=== PATIENT | female | born 1985 | race Caucasian/White ===

== ENCOUNTER 2021-09-18 12:10 | Outpatient (CLI) | payer BC, SELFPAY ==
--- NOTE | 2021-09-18 12:15 | CRLHL7_ITS ---
For Patients: As a result of the Cures Act, medical imaging exams and procedure reports are released immediately into your electronic medical record. You may view this report before your referring provider. If you have questions, please contact your health care provider. INDICATION: Growth. TECHNIQUE: Ultrasound OB pelvis transabdominal. Real-time cifuentes-scale imaging of the fetus. COMPARISON: None available. FINDINGS: Sonographic imaging demonstrates a single living intrauterine gestation. Fetus demonstrates a regular cardiac rate of 123 beats per minute. Fetus has a breech orientation. Amniotic fluid volume appears normal. Single deepest pocket measures 5.7 cm. Placenta is posterior. The following biometric measurements were obtained: Biparietal diameter: 8.6 cm, 34 week 4 day, 84th percentile. Head circumference: 32 cm, 36 week 0 day, 84th percentile. Abdominal circumference: 29.4 cm, 33 week 2 day, 50th percentile. Femur length: 6.3 cm, 32 week 3 day, 21st percentile FL/AC ratio 21.3%. HC/AC ratio 1.09 The composite ultrasound gestational age is calculated at 34 week 1 day with an estimated sonographic due date of 10/29/2021. The weight is estimated at 2203 grams grams, the 51st percentile percentile. IMPRESSION.: Viable intrauterine . No abnormalities seen. Estimated 51st percentile based on weight. Dictated by Frank Leigh MD @ 09/18/2021 1:42:46 PM (Electronically Signed)
== END 2021-09-18 12:11 | disposition home or self-care (01) ==
LOC: US 12:10
PROVIDERS: PCP Family Medicine; Visit Provider Obstetrics & Gynecology
DX: O98.513 Other viral diseases complicating pregnancy, third trimester (principal); U07.1 COVID-19; Z3A.33 33 weeks gestation of pregnancy
CPT/HCPCS: 76816

== ENCOUNTER 2021-10-07 15:27 | Outpatient (CLI) | payer BC, SELFPAY ==
--- OUTSIDE RECORDS SUMMARY | 2021-10-07 15:38 | XMS_ITS | Encounter Summary ---
:1985 Author Organization [place] Address [address] [place] [address] Care Team Providers Name Role Phone Unavailable Primary Care Provider Unavailable Reason for Referral Diagnostic Imaging Ultrasound (Routine) - Pending Review Specialty Diagnoses / Procedures Referred By Contact Refer red To Contact Diagnoses Hx of delivery, currently , second trimester Terry Benítez MD Procedures MF US OB Complete 2/3 Tri Single [address] [place], [place] [address] Referral ID Status Reason Start Date Expiration Date Visits V isits Requested Authorized [id number] Pending 05/03/2021 05/03/2022 1 1 Review Reason for Visit Diagnostic Imaging Ultrasound (Routine) - Pending Review Specialty Diagnoses / Procedures Referred By Contact Refer red To Contact Diagnoses Hx of delivery, currently , second trimester Terry Benítez MD Procedures MF US OB Complete 2/3 Tri Single [address] [place], [place] [address] Referral ID Status Reason Start Date Expiration Date Visits V isits Requested Authorized [id number] Pending 05/03/2021 05/03/2022 1 1 Review Encounter Details Date Type Department Care Team Description 05/24/2021 Hospital Encounter [facility] Santiago Benítez MD [address] [place] [address] Hx of Maternal Melba Bell, DO [address] [place] [address] delivery, currently [facility] , se cond Harris trimester [address] [place] [address] Social History Tobacco Use Types Packs/Day Years Used Date Never Assessed Sex Assigned at Date Recorded Not on file COVID-19 Exposure Response Date Recorded In the last month, have you been in contact with No / Unsure 05/24/2021 7:59 AM CDT someone who was confirmed or suspected to have Coronavirus / COVID-19? documented as of this encounter Medications at Time of Discharge Medication Sig Dispensed Refills Start Date End Date aspirin (ASA) 81 MG Take 81 mg by mouth 0 chewable tablet daily MV-Min-Fe Take 1 tablet by 0 10/22/2019 Fum-FA-DHA ( 1 PO) mouth daily documented as of this encounter Plan of Treatment Not on filedocumented as of this encounter Procedures Procedure Name Priority Date/Time Associated Diagnosis Comme nts [facility] US OB COMPLETE Routine 05/24/2021 9:07 AM Hx of Re sults for this 2/3 TRI SINGLE CDT delivery, currently proced ure are in , second the results trimester section. documented in this encounter Results [facility] US OB Complete 2/3 Tri Single (05/24/2021 9:07 AM CDT) Anatomical Region Laterality Modality Ultrasound Specimen (Source) Anatomical Collection Method Collection Time Re ceived Time Location / / Volume Laterality 05/24/2021 8:04 AM CDT Impressions 05/24/2021 5:29 PM CDT IMPRESSION 1) Intrauterine at 16 3/7 week s gestational age. 2) None of the anomalies commonly detect ed by ultrasound were evident in the early anatomic survey described above. The nasal bone measures <5%ile. No other markers for aneuploidy were noted. 3) Growth parameters and estimated weight were consistent with an appropriate for gestation age pattern of growth. 4) The amniotic fluid volume appeared no rmal. 5) The transvaginal cervical length is r eassuring. Narrative 05/24/2021 5:29 PM CDT / Trim Pat. Name: ILIANA RAMIREZ Study Date: 8:04am Pat. NO: [id number] Referring ??MD: PRINCE SALAZAR Site: [facility] Urgent Care Technician: Fernando Matthews RDMS : 1985 Age: 36 INDICATION Survey METHOD Transabdominal and transvaginal ultrasou nd approaches were used. (Transvaginal ultrasound examination was required to adequately complete the exam.). View: Sufficient Burnett . Number of fetuses: 1 DATING ? Date ?Details ?Gest. age ?ZAHIRA LMP ?01/29/2021 ? 16 w + 3 d ? 11/05/2021 Prior assessment ? 2/ 03/2021 ?GA: 7 w + 4 d ? 15 w + 6 d ? 11/09/2021 U/S ? 05/24/2021 ?based upon AC, BPD, Femur, HC ? 16 w + 2 d ? 11/06/2021 Assigned dating ?Dating performed on 05/24/2021, based on the LMP ?16 w + 3 d ? 11/05/2021 GENERAL EVALUATION Cardiac activity present. FHR 142 bpm. movements visualized. Presentation cephalic. Placenta Posterior, No Previa, > 2 cm fr om internal os. Umbilical cord 3 vessel cord. Amniotic fluid Amount of AF: normal. MVP 3.9 cm. BIOMETRY Main Biometry: BPD ?33.8 ?mm ? 16w 3d ?Hadlock OFD ?45.4 ?mm ? 15w 6d ?Nicolaides HC ?126.1 ?mm ?16w 3d ?Hadlock Cerebellum tr ?15.7 ? mm ?15w 5d ?Nicolaides AC ?104.9 ?mm ?16w 3d ?51% ?Hadlock Femur ?19.3 ? mm ?15w 5d ?Hadlock Humerus ?19.4 ?mm ? 15w 5d ?Brooke Weight Calculation: EFW ? 146 ? g ? 24% ?Hadlock EFW (lb,oz) ? 0 lb 5 ?oz EFW by ?Hadlock ([id number]) Head / Face / Neck Biometry: Sand Analyst ? 5.4 ? mm CM ?2.9 ? mm Nasal bone ? 3.6 ? mm Nuchal fold ? 3.1 ? mm ANATOMY Face ? Nose: Hypoplastic nasal bone The following structures appear normal: Head / Neck ? Cranium. Head size. Head shape. Lateral ventricles. Choroid plexus. Midline falx. Cavum septi pellucidi. Cerebellum. Cisterna magna. ? Parenchyma. Thalami. Vermis. ? Neck. Nuchal fold. Face ? Lips. Profile. Maxilla. Mandible. Lens. Heart / Thorax ?4-chamber view. RVOT view. LVOT view. Situs. Aortic arch view. Bicaval view. Ductal arch view. Superior vena cava. Inferior vena cava. 3-vessel ? view. 3-tqkcnd-frarnlo view. Cardiac position. Cardiac size. Cardiac rhythm. ? Right lung. Left lung. Diaphragm. Abdomen ? Abdominal wall. Cord insertion. Stomach. Kidneys. Bladder. Liver. Bowel. Genitals. Spine ?Cervical spine. Thoracic spine. Lumbar spine. Sacral spine. Extremities / Skeleton ?Rig ht arm. Right hand. Left arm. Left hand. Right leg. Right foot. Left leg. Left foot. MATERNAL STRUCTURES Cervix ?Visualized ? Appearance: normal ? Approach - Transvaginal: Cervical length 32.2 mm ? Approach - Transabdominal: Cervical length (2) 51.3 mm ? Transvaginal measurement limited by lower uterine segment contraction. Right Ovary ?Visualized Left Ovary ?Visualized CONSULTATION Type: MFM CONSULTATION Dear Dr. Salazar, Thank you for your request for a Materna l Medicine consultation on Ms. Iliana Ramirez regarding her history of a prior PTD. Iliana is a 36 y/o @ 16 04/29 wee ks by LMP c/w early US here to discuss her prior PTB. She is feeling well and has no complaints today. She had Covid (mild) in Feb, 2021. s/p fully vaccinated. 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 Kimber ined placenta, requiring manual extraction, no hemorrhage History of Spontaneous (PT B) Today we discussed the incidence and epi demiology of (PTB). There are multiple etiologies of spontaneous PTB, including but not limited to infection, bleeding, uterine distension, cervical i nsufficiency and stress. However, most spontaneous deliveries occur in patients with no risk factors. A history of prior delivery is a significant risk factor fo r recurrence in a subsequent . Recurrent delivery has been linked to maternal ethnicity, genitourinary infection, and especially gestational age at the first delivery: the earlier the delivery, the greater the likelihood of recurrence. We discussed that recurrent can happen at the same gestational age as a prior p reterm but that it cannot be predicted and it could recur at an earlier gestational age. We also discussed the concept of cervical insufficiency which is another cause of and is classically described as painless cervical dilation. Most women with cervical insufficiency which is either undiagnosed or those undergoing e xpectant management will eventually develop symptoms, which may be pressure, back pain, cramping, leakage of fluid, vaginal bleeding and ultimately contractions. Mi d-trimester cervical dilation increases the risk of intra-amniotic infection which can then cause contractions and labor. We discussed the increased morb idity and mortality with prematurity which is the rationale for trying to prevent recurrent . We follow cervical lengths every two from 16 to 23 weeks in women w ith a history of PTB; an ultrasound indicated cerclage may be considered if shortening is detected prior to 23-24 weeks, given that all cases of cervical insufficiency may not fit into the classic patterns by history. We discussed the data regarding the use of weekly intramuscular injections of 17 hydroxyprogesterone caproate (17-OHP) supplementation as a means to modify the risk of recurrent . A multicente r, double-blind randomized controlled trial found a 34% reduction in recurrent <37 weeks (Phillip et al, 2003) with the use of 17-OHP . This trial also found a sign ificant reduction in recurrent <35 and <32 weeks. A more recent international, double-blind randomized controlled trial (PROLONG) found no reduction in the rate of recurrent <35 weeks (Lela et al, 2019), calling into question the established use of 17-OHP. Importantly, both studies indicate that 17-OHP is saf e, at least in the short term. The Society for Maternal Medicine interprets these disparate results as possibly partially related to the different populations in the two studies (59% black in [place] versus 90% white in [place]; 50% marri ed in [place] versus 90% in [place]; 20% tobacco use in [place] versus 8% in [place]; 32% had more than one prior PTB in [place] versus 12% in [place]; 91% with at andres st on additional risk factor for PTB in [place] versus 48% in [place]). The current conclusion of [facility] is that it is reasonable to offer 17-OHP to women with a profile mor e life assurance representative of the very high risk patient, but that all women at risk of recurrent should have a discussion of the risks/benefits and undergo a shared deci alex-making process. After the publication of the Lela ( PROLONG) study an FDA Advisory Committee recommended withdrawing [place] (17 - OHP) off the market. The FDA decision is still pending. [facility] did not change their position. ACOG supports the use of vaginal progesterone as well for the indication of a primary PTB. After a discussion of the above, Ms. Berenice hooks has decided not to pursue progesterone supplementation which is reasonable. Hypoplastic Nasal Bone (not seen initial ly, discussed with the patient after her visit). - We reviewed the findings of a hypoplas tic NB. Discussed her baseline risk for DS based on her age is 1 in 342. An isolated short nasal bone carries a likelihood ratio of 6 and increases her risk to 1 in 57 (or 1. 7%). We also discussed that this can be a normal variant, no other markers were noted. We reviewed the option for cell free DNA screening versus amniocentesis. The mar ent prefers a non invasive route and will likely go to [place] on Thursday to have cell free DNA drawn. She can contact our office early next week if Dr. Salazar' office ca nnot get her in for it. We discussed what the results might mean if low risk/high risk, but can provide further information if needed. Recommendations: - Cell free DNA screening to be performe d through [place]. - Baseline transvaginal cervical length at 16 weeks' gestation with measurements every 2 weeks through 23 weeks. - [place] to perform the TVUS for CL at 18 and 22 weeks. - [facility] will perform a comprehensive US at 20 weeks + the TVUS. - We reviewed the option of 17 OHP/vagin al progesterone. Patient will forgo those options. - Ultrasound-indicated cerclage should b e considered if shortening <25 mm is diagnosed <24 weeks. - Administration of corticoste roids if the patient is deemed to be at increased risk of imminent delivery. - Urine culture every trimester with agg ressive treatment of bacteriuria. - Clinical evaluation of labor s ymptoms. I spent a total of 42 minutes with patie nt - 30 min counseling - 6 min chart review - 6 min documentation Melba Bell DO Maternal Medicine RECOMMENDATION We discussed the findings on today's ul rasound with the patient. See consultation above for details. A repeat ultrasound has been scheduled [facility] in 4 weeks for a comprehensive US. Return to primary provider for continued care. Thank you for the opportunity to partici dio in the care of this patient. If you have questions regarding today's evaluation or if we can be of further service, please contact the [facility]. anomalies may be present but not detected Procedure Note Melba Bell DO - 05/24/2021 2nd / 3rd Trim Pat. Name:Ling RAMIREZ Date:05/24 8:04am Pat. NO: [id number] MD:JUSTIN SALAZAR [facility]Fernando Matthews RDMS :1985Age:36 INDICATION Survey METHOD Transabdominal and transvaginal ultrasou nd approaches were used. (Transvaginal ultrasound examination was required to adequately complete the exam.). View: Sufficient Burnett . Number of fetuses: 1 DATING Date Details Gest. age ZAHIRA LMP 01/29/2021 16 w + 3 d 11/05/2021 Prior assessment 03/27/2021 GA: 7 w + 4 d 15 w + 6 d 11/09/2021 U/S 05/24/2021 based upon AC, BPD, Femur, HC 16 w + 2 d 11/06/2021 Assigned dating Dating performed on 05/24, based on the LMP 16 w + 3 d 11/05/2021 GENERAL EVALUATION Cardiac activity present. FHR 142 bpm. movements visualized. Presentation cephalic. Placenta Posterior, No Previa, > 2 cm fr om internal os. Umbilical cord 3 vessel cord. Amniotic fluid Amount of AF: normal. MVP 3.9 cm. BIOMETRY Main Biometry: BPD 33.8 mm 16w 3d Hadlock OFD 45.4 mm 15w 6d Nicolaides HC 126.1 mm 16w 3d Hadlock Cerebellum tr 15.7 mm 15w 5d Nicolaides AC 104.9 mm 16w 3d 51% Hadlock Femur 19.3 mm 15w 5d Hadlock Humerus 19.4 mm 15w 5d Brooke Weight Calculation: EFW 146 g 24% Hadlock EFW (lb,oz) 0 lb 5 oz EFW by Hadlock ([id number]) Head / Face / Neck Biometry: Sand Analyst 5.4 mm CM 2.9 mm Nasal bone 3.6 mm Nuchal fold 3.1 mm ANATOMY Face Nose: Hypoplastic nasal bone The following structures appear normal: Head / Neck Cranium. Head size. Head sha pe. Lateral ventricles. Choroid plexus. Midline falx. Cavum septi pellucidi. Cerebellum. Cisterna magna. Parenchyma. Thalami. Vermis. Neck. Nuchal fold. Face Lips. Profile. Maxilla. Mandible. L ens. Heart / Thorax 4-chamber view. RVOT view . LVOT view. Situs. Aortic arch view. Bicaval view. Ductal arch view. Superior vena cava. Inferior vena cava. 3-vessel view. 8-ugghac-ljnocew view. Cardiac po sition. Cardiac size. Cardiac rhythm. Right lung. Left lung. Diaphragm. Abdomen Abdominal wall. Cord insertion. Stomach. Kidneys. Bladder. Liver. Bowel. Genitals. Spine Cervical spine. Thoracic spine. Bri mbar spine. Sacral spine. Extremities / Skeleton Right arm. Right hand. Left arm. Left hand. Right leg. Right foot. Left leg. Left foot. MATERNAL STRUCTURES Cervix Visualized Appearance: normal Approach - Transvaginal: Cervical lengt h 32.2 mm Approach - Transabdominal: Cervical jania gth (2) 51.3 mm Transvaginal measurement limited by low er uterine segment contraction. Right Ovary Visualized Left Ovary Visualized CONSULTATION Type: MFM CONSULTATION Dear Dr. Salazar, Thank you for your request for a Materna l Medicine consultation on Ms. Iliana Ramirez regarding her history of a prior PTD. Iliana is a 36 y/o @ 16 04/29 wee ks by LMP c/w early US here to discuss her prior PTB. She is feeling well and has no complaints today. She had Covid (mild) in Feb, 2021. s/p fully vaccinated. 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 Kimber ined placenta, requiring manual extraction, no hemorrhage History of Spontaneous (PT B) Today we discussed the incidence and epi demiology of (PTB). There are multiple etiologies of spontaneous PTB, including but not limited to infection, bleeding, uterine distension, cervical i nsufficiency and stress. However, most spontaneous deliveries occur in patients with no risk factors. A history of prior delivery is a significant risk factor fo r recurrence in a subsequent . Recurrent delivery has been linked to maternal ethnicity, genitourinary infection, and especially gestational age at the first delivery: the earlier the delivery, the greater the likelihood of recurrence. We discussed that recurrent can happen at the same gestational age as a prior p reterm but that it cannot be predicted and it could recur at an earlier gestational age. We also discussed the concept of cervical insufficiency which is another cause of and is classically described as painless cervical dilation. Most women with cervical insufficiency which is either undiagnosed or those undergoing e xpectant management will eventually develop symptoms, which may be pressure, back pain, cramping, leakage of fluid, vaginal bleeding and ultimately contractions. Mi d-trimester cervical dilation increases the risk of intra-amniotic infection which can then cause contractions and labor. We discussed the increased morb idity and mortality with prematurity which is the rationale for trying to prevent recurrent . We follow cervical lengths every two from 16 to 23 weeks in women w ith a history of PTB; an ultrasound indicated cerclage may be considered if shortening is detected prior to 23-24 weeks, given that all cases of cervical insufficiency may not fit into the classic patterns by history. We discussed the data regarding the use of weekly intramuscular injections of 17 hydroxyprogesterone caproate (17-OHP) supplementation as a means to modify the risk of recurrent . A multicente r, double-blind randomized controlled trial found a 34% reduction in recurrent <37 weeks (Phillip et al, 2003) with the use of 17-OHP . This trial also found a sign ificant reduction in recurrent <35 and <32 weeks. A more recent international, double-blind randomized controlled trial (PROLONG) found no reduction in the rate of recurrent <35 weeks (Lela et al, 2019), calling into question the established use of 17-OHP. Importantly, both studies indicate that 17-OHP is saf e, at least in the short term. The Society for Maternal Medicine interprets these disparate results as possibly partially related to the different populations in the two studies (59% black in [place] versus 90% white in [place]; 50% marri ed in [place] versus 90% in [place]; 20% tobacco use in [place] versus 8% in [place]; 32% had more than one prior PTB in [place] versus 12% in [place]; 91% with at andres st on additional risk factor for PTB in [place] versus 48% in [place]). The current conclusion of [facility] is that it is reasonable to offer 17-OHP to women with a profile mor e life assurance representative of the very high risk patient, but that all women at risk of recurrent should have a discussion of the risks/benefits and undergo a shared deci alex-making process. After the publication of the [place] ( PROLONG) study an FDA Advisory Committee recommended withdrawing [place] (17 - OHP) off the market. The FDA decision is still pending. [facility] did not change their position. ACOG supports the use of vaginal progesterone as well for the indication of a primary PTB. After a discussion of the above, Ms. Berenice hooks has decided not to pursue progesterone supplementation which is reasonable. Hypoplastic Nasal Bone (not seen initial ly, discussed with the patient after her visit). - We reviewed the findings of a hypoplas tic NB. Discussed her baseline risk for DS based on her age is 1 in 342. An isolated short nasal bone carries a likelihood ratio of 6 and increases her risk to 1 in 57 (or 1. 7%). We also discussed that this can be a normal variant, no other markers were noted. We reviewed the option for cell free DNA screening versus amniocentesis. The mar ent prefers a non invasive route and will likely go to [place] on Thursday to have cell free DNA drawn. She can contact our office early next week if Dr. Salazar' office ca nnot get her in for it. We discussed what the results might mean if low risk/high risk, but can provide further information if needed. Recommendations: - Cell free DNA screening to be performe d through [facility]. - Baseline transvaginal cervical length at 16 weeks' gestation with measurements every 2 weeks through 23 weeks. - [facility] to perform the TVUS for CL at 18 and 22 weeks. - [facility] will perform a comprehensive US at 20 weeks + the TVUS. - We reviewed the option of 17 OHP/vagin al progesterone. Patient will forgo those options. - Ultrasound-indicated cerclage should b e considered if shortening <25 mm is diagnosed <24 weeks. - Administration of corticoste roids if the patient is deemed to be at increased risk of imminent delivery. - Urine culture every trimester with agg ressive treatment of bacteriuria. - Clinical evaluation of labor s ymptoms. I spent a total of 42 minutes with kelly nt - 30 min counseling - 6 min chart review - 6 min documentation Melba Bell DO Maternal Medicine RECOMMENDATION We discussed the findings on today's ult rasound with the patient. See consultation above for details. A repeat ultrasound has been scheduled h ere in 4 weeks for a comprehensive US. Return to primary provider for continued care. Thank you for the opportunity to partici dio in the care of this patient. If you have questions regarding today's evaluation or if we can be of further service, please contact the [facility]. anomalies may be present but not detected IMPRESSION 1) Intrauterine at 16 3/7 week s gestational age. 2) None of the anomalies commonly detect ed by ultrasound were evident in the early anatomic survey described above. The nasal bone measures <5%ile. No other markers for aneuploidy were noted. 3) Growth parameters and estimated weight were consistent with an appropriate for gestation age pattern of growth. 4) The amniotic fluid volume appeared no rmal. 5) The transvaginal cervical length is r eassuring. Terry Benítez MD [facility] documented in this encounter Visit Diagnoses Diagnosis Hx of delivery, currently pregna nt, second trimester documented in this encounter
--- OUTSIDE RECORDS SUMMARY | 2021-10-07 15:38 | XMS_ITS | Encounter Summary ---
:1985 Author Organization [place] Address [address] [facility] [place] [address] Care Team Providers Name Role Phone Unavailable Primary Care Provider Unavailable Reason for Visit Reason Comments Ultrasound 2/3+TV- hx PTL/PTD, 1st tri Covid Consult MFM- hx PTL/PTD, 1st tri Cov id Encounter Details Date Type Department Care Team Description 05/17/2021 PRE VISIT [facility] Maricruz Andrade nd (2/3+TV- hx Maternal Jonelle Raz RN PTL/PTD, 1st [facility] Covid); Cons ult ([facility] hx PTL/PTD, 1st tri [address] Covid) [place], [place] [address] Social History Tobacco Use Types Packs/Day Years Used Date Never Assessed Sex Assigned at Date Recorded Not on file documented as of this encounter Plan of Treatment Not on filedocumented as of this encounter Visit Diagnoses Not on filedocumented in this encounter
--- OUTSIDE RECORDS SUMMARY | 2021-10-07 15:38 | XMS_ITS | Encounter Summary ---
:1985 Author Organization [place] Address [address] [place] [address] Care Team Providers Name Role Phone Unavailable Primary Care Provider Unavailable Reason for Referral Consultation (Routine) - Pending Review Specialty Diagnoses / Procedures Referred By Contact Refer red To Contact Diagnoses related condition, antepartum Jacqueline Salazar MD [facility] MEDICAL [address] [place] [address] Referral ID Status Reason Start Date Expiration Date Visits V isits Requested Authorized [id number] Pending 05/03/2021 05/03/2022 1 1 Review [employer]PER[employer] Encounter Details Date Type Department Care Team Description 05/03/2021 Transcribe Orders [facility] Jacqueline Salazar Pr egnancy related Maternal MD Jude condition, Medicine Center [facility] antepartum ( Primary [place] MEDICAL Dx) [address] [facility] [address] [place] [id number] Social History Tobacco Use Types Packs/Day Years Used Date Never Assessed Sex Assigned at Date Recorded Not on file documented as of this encounter Plan of Treatment Scheduled Referrals Name Type Priority Associated Diagnoses Order S chedule Mat Med Ctr Referral Routine related Expec desean: 05/03/2021 Referral - condition, antepartu m (Approximate), Expires: 2021 documented as of this encounter Visit Diagnoses Diagnosis related condition, antepartum - Primary documented in this encounter
--- OUTSIDE RECORDS SUMMARY | 2021-10-07 15:38 | XMS_ITS | Encounter Summary ---
:1985 Author Organization [place] Address [address] [place] [address] Care Team Providers Name Role Phone Unavailable Primary Care Provider Unavailable Reason for Visit [facility] (Routine) - Closed Specialty Diagnoses / Procedures Referred By Contact Refer red To Contact Ziggy Brown FOR ATHLETIC ORTHOPAEDIC FRACTURE [facility] MED [address] [place] [address] Fax: Referral ID Status Reason Start Date Expiration Date Visits V isits Requested Authorized HPCIGNA - KNEE Closed 07/08/2007 02/23/2008 90 88 Encounter Details Date Type Department Care Team Description 08/11/2007 [facility] Mckeon ACL (Anterior Cruciate Ligament) Tear; [facility] Other Postp rocedural Status [facility] [address] [facility] [facility] [place], [place] [address] Social History Tobacco Use Types Packs/Day Years Used Date Never Assessed Sex Assigned at Date Recorded Not on file documented as of this encounter Progress Notes Patricia Mckeon - 08/11/2007 1:02 PM CDT Please refer to the daily flowsheet for treatment today and total treatment time. Does this patient have Medicare or Medicaid as primary or secondary insurance? NO documented in this encounter Plan of Treatment Not on filedocumented as of this encounter Procedures Procedure Name Priority Date/Time Associated Diagnosis Comme nts [facility] THERAPEUTIC Routine 08/11/2007 1:02 PM ACL (Anterior Cruci ate ACTIVITIES CDT Ligament) Tear Other Postprocedural Status [facility] NEUROMUSCULAR Routine 08/11/2007 1:02 PM ACL (Anterior Cru ciate RE-EDUCATION CDT Ligament) Tear Other Postprocedural Status [facility] THERAPEUTIC Routine 08/11/2007 1:02 PM ACL (Anterior Cruci ate EXERCISES CDT Ligament) Tear Other Postprocedural Status documented in this encounter Visit Diagnoses Diagnosis ACL (anterior cruciate ligament) tear Sprain of cruciate ligament of knee Other postprocedural status(V45.89) Other postprocedural status documented in this encounter
--- OUTSIDE RECORDS SUMMARY | 2021-10-07 15:38 | XMS_ITS | Encounter Summary ---
:1985 Author Organization [place] Address [address] [facility] [address] Care Team Providers Name Role Phone Melba Bell DO Unavailable [phone] Reason for Referral Diagnostic Imaging Ultrasound (Routine) - Pending Review Specialty Diagnoses / Procedures Referred By Contact Refer red To Contact Diagnoses Hx of delivery, currently , second trimester Melba Bell, Procedures [facility] Comprehensive Single DO [address] [place], [place] [address] Referral ID Status Reason Start Date Expiration Date Visits V isits Requested Authorized [id number] Pending 05/24/2021 05/24/2022 1 1 Review Reason for Visit Diagnostic Imaging Ultrasound (Routine) - Pending Review Specialty Diagnoses / Procedures Referred By Contact Refer red To Contact Diagnoses Hx of delivery, currently , second trimester Melba Bell, Procedures [facility] Comprehensive Single DO [address] [place], [place] [address] Referral ID Status Reason Start Date Expiration Date Visits V isits Requested Authorized [id number] Pending 05/24/2021 05/24/2022 1 1 Review Encounter Details Date Type Department Care Team Description 06/21/2021 [facility]x of Maternal DO Alla delivery, [facility], [place], [facility] [address] pregna nt, [facility] 400 trimester [address] [place], [place] [address] [address] [place], [place] [phone] (Work) [phone] Social History Tobacco Use Types Packs/Day Years Used Date Never Assessed Sex Assigned at Date Recorded Not on file COVID-19 Exposure Response Date Recorded In the last 10 days, have you been in contact with No / Unsu re 06/21/2021 8:48 AM CDT someone who was confirmed or suspected to have Coronavirus/COVID-19? documented as of this encounter Medications at [...] encounter Procedures Procedure Name Priority Date/Time Associated Comments Diagnosis [facility] US COMPREHENSIVE Routine 06/21/2021 11:04 Hx of Re sults for this SINGLE AM CDT delivery, currently procedur e are in , second the results trimester section. documented in this encounter Results [facility] US Comprehensive Single (06/21/2021 11:04 AM CDT) Anatomical Region Laterality Modality Ultrasound Specimen (Source) Anatomical Collection Method Collection Time Re ceived Time Location / / Volume Laterality 06/21/2021 8:50 AM CDT Impressions 06/21/2021 10:24 AM CDT IMPRESSION 1) Intrauterine at 20 3/7 week s gestational age. 2) None of the anomalies commonly detect ed by ultrasound were evident in the detailed anatomic survey described above. No markers for aneuploidy are noted (the nasal bone is no longer hypoplastic). 3) Growth parameters and estimated weight were consistent with an appropriate for gestation age pattern of growth. 4) The amniotic fluid volume appeared no rmal. 5) The transvaginal cervical length is r eassuring. Narrative 06/21/2021 10:24 AM CDT Comprehensive Pat. Name: ILIANA RAMIREZ Study Date: 8:50am Pat. NO: [id number] Referring ??MD: PRINCE SHERIFF Site: [facility] Inside Sales: Marjan Lane RD MS : 1985 Age: 36 INDICATION History of delivery. NIPT negati ve METHOD Transabdominal and transvaginal ultrasou nd approaches were used. (Transvaginal ultrasound examination was required to adequately complete the exam.). View: Sufficient Burnett . Number of fetuses: 1 DATING ? Date ?Details ?Gest. age ?ZAHIRA LMP ?01/29/2021 ? 20 w + 3 d ? 11/05/2021 Prior assessment ? 2/ 03/2021 ?GA: 7 w + 4 d ? 19 w + 6 d ? 11/09/2021 U/S ? 06/21/2021 ? based upon AC, BPD, Femur, HC ? 20 w + 3 d ? 11/05/2021 Assigned dating ?Dating performed on 05/24/2021, based on the LMP ?20 w + 3 d ? 11/05/2021 GENERAL EVALUATION Cardiac activity present. FHR 136 bpm. movements present. Presentation cephalic. Placenta Posterior, No Previa, > 2 cm fr om internal os. Umbilical cord 3 vessel cord. Amniotic fluid Amount of AF: normal. MVP 5.2 cm. BIOMETRY Main Biometry: BPD ?48.1 ?mm ? 20w 4d ?Hadlock OFD ?64.0 ?mm ? 20w 3d ?Nicolaides HC ?180.6 ?mm ?20w 3d ?Hadlock Cerebellum tr ?21.0 ? mm ?20w 0d ?Nicolaides AC ?152.0 ?mm ?20w 3d ?43% ?Hadlock Femur ?32.0 ? mm ?20w 0d ?Hadlock Humerus ?31.0 ?mm ? 20w 2d ?Brooke Weight Calculation: EFW ? 341 ? g ? 35% ?Hadlock EFW (lb,oz) ? 0 lb 12 ? oz EFW by ?Hadlock ([id number]) Head / Face / Neck Biometry: Motor Rebuilder ? 5.9 ? mm CM ?6.1 ? mm Nasal bone ? 5.9 ? mm Nuchal fold ? 3.4 ? mm ANATOMY The following structures appear normal: Head / Neck ? Cranium. Head size. Head shape. Lateral ventricles. Choroid plexus. Midline falx. Cavum septi pellucidi. Cerebellum. Cisterna magna. ? Parenchyma. Thalami. Vermis. ? Neck. Nuchal fold. Face ? Lips. Profile. Nose. Maxilla. Mandible. Orbits. Lens. Heart / Thorax ?4-chamber view. RVOT view. LVOT view. Situs. Aortic arch view. Bicaval view. Ductal arch view. Superior vena cava. Inferior vena cava. 3-vessel ? view. 9-zpwkex-uodhexk view. Cardiac position. Cardiac size. Cardiac rhythm. ? Right lung. Left lung. Diaphragm. Abdomen ? Abdominal wall. Cord insertion. Stomach. Kidneys. Bladder. Liver. Bowel. Genitals. Spine ?Cervical spine. Thoracic spine. Lumbar spine. Sacral spine. Extremities / Skeleton ?Rig ht arm. Right hand. Left arm. Left hand. Right leg. Right foot. Left leg. Left foot. Gender: male. MATERNAL STRUCTURES Cervix ?Visualized ? Appearance: Appears Closed ? Approach - Transvaginal: Cervical length 40.0 mm Right Ovary ?Visualized Left Ovary ?Visualized RECOMMENDATION We discussed the findings on today's ult rasound with the patient. Patient opted to do cell free DNA screen ing after her last US and it returned low risk. Having a repeat TVUS for CL with primary ob in 2 weeks. Return to primary provider for continued care. Thank you for the opportunity to partici dio in the care of this patient. If you have questions regarding today's evaluation or if we can be of further service, please contact the [facility]. anomalies may be present but not detected Procedure Note Melab Bell, DO - 06/21/2021 Comprehensive Pat. Name:MARK RAMIREZILStsebastián Date:06/21 8:50am Pat. NO: [id number] MD:JUSTIN SHERIFF Site:[facility]gesSonographer:Marjan Lane RDMS :1985Age:36 INDICATION History of delivery. NIPT negati ve METHOD Transabdominal and transvaginal ultrasou nd approaches were used. (Transvaginal ultrasound examination was required to adequately complete the exam.). View: Sufficient Burnett . Number of fetuses: 1 DATING Date Details Gest. age ZAHIRA LMP 01/29/2021 20 w + 3 d 11/05/2021 Prior assessment 03/27/2021 GA: 7 w + 4 d 19 w + 6 d 11/09/2021 U/S 06/21/2021 based upon AC, BPD, Femur, HC 20 w + 3 d 11/05/2021 Assigned dating Dating performed on 05/24, based on the LMP 20 w + 3 d 11/05/2021 GENERAL EVALUATION Cardiac activity present. FHR 136 bpm. movements present. Presentation cephalic. Placenta Posterior, No Previa, > 2 cm fr om internal os. Umbilical cord 3 vessel cord. Amniotic fluid Amount of AF: normal. MVP 5.2 cm. BIOMETRY Main Biometry: BPD 48.1 mm 20w 4d Hadlock OFD 64.0 mm 20w 3d Nicolaides HC 180.6 mm 20w 3d Hadlock Cerebellum tr 21.0 mm 20w 0d Nicolaides AC 152.0 mm 20w 3d 43% Hadlock Femur 32.0 mm 20w 0d Hadlock Humerus 31.0 mm 20w 2d Brooke Weight Calculation: EFW 341 g 35% Hadlock EFW (lb,oz) 0 lb 12 oz EFW by Hadlock ([id number]) Head / Face / Neck Biometry: Motor Rebuilder 5.9 mm CM 6.1 mm Nasal bone 5.9 mm Nuchal fold 3.4 mm ANATOMY The following structures appear normal: Head / Neck Cranium. Head size. Head sha pe. Lateral ventricles. Choroid plexus. Midline falx. Cavum septi pellucidi. Cerebellum. Cisterna magna. Parenchyma. Thalami. Vermis. Neck. Nuchal fold. Face Lips. Profile. Nose. Maxilla. Mirian ble. Orbits. Lens. Heart / Thorax 4-chamber view. RVOT view . LVOT view. Situs. Aortic arch view. Bicaval view. Ductal arch view. Superior vena cava. Inferior vena cava. 3-vessel view. 9-nmskix-lgehmue view. Cardiac po sition. Cardiac size. Cardiac rhythm. Right lung. Left lung. Diaphragm. Abdomen Abdominal wall. Cord insertion. Stomach. Kidneys. Bladder. Liver. Bowel. Genitals. Spine Cervical spine. Thoracic spine. Bri mbar spine. Sacral spine. Extremities / Skeleton Right arm. Right hand. Left arm. Left hand. Right leg. Right foot. Left leg. Left foot. Gender: male. MATERNAL STRUCTURES Cervix Visualized Appearance: Appears Closed Approach - Transvaginal: Cervical lengt h 40.0 mm Right Ovary Visualized Left Ovary Visualized RECOMMENDATION We discussed the findings on today's ult rasound with the patient. Patient opted to do cell free DNA screen ing after her last US and it returned low risk. Having a repeat TVUS for CL with primary ob in 2 weeks. Return to primary provider for continued care. Thank you for the opportunity to partici dio in the care of this patient. If you have questions regarding today's evaluation or if we can be of further service, please contact the [facility]. anomalies may be present but not detected IMPRESSION 1) Intrauterine at 20 3/7 week s gestational age. 2) None of the anomalies commonly detect ed by ultrasound were evident in the detailed anatomic survey described above. No markers for aneuploidy are noted (the nasal bone is no longer hypoplastic). 3) Growth parameters and estimated weight were consistent with an appropriate for gestation age pattern of growth. 4) The amniotic fluid volume appeared no rmal. 5) The transvaginal cervical length is r eassuring. Melba Bell DO IMG M US ORDERABLES documented in this encounter Visit Diagnoses Diagnosis Hx of delivery, currently pregna nt, second trimester documented in this encounter Care Teams [employer] Software Developer Relationship Specialty Start Date End Date Melba Bell DO Assigned OBGYN Provider 06/02/21 09/20/[address] [facility] [address] [place] [address] documented as of this encounter
--- OUTSIDE RECORDS SUMMARY | 2021-10-07 15:38 | XMS_ITS | Encounter Summary ---
:1985 Author Organization [place] Address [address] [place] [address] Care Team Providers Name Role Phone Unavailable Primary Care Provider Unavailable Reason for Visit [facility] (Routine) - Closed Specialty Diagnoses / Procedures Referred By Contact Refer red To Contact Ziggy Brown FOR ATHLETIC ORTHOPAEDIC FRACTURE [facility] MED [address] [place] [phone] Fax: Referral ID Status Reason Start Date Expiration Date Visits V isits Requested Authorized HPCIGNA - KNEE Closed 07/08/2007 02/23/2008 90 88 Encounter Details Date Type Department Care Team Description 07/28/2007 [facility] Mckeon ACL (Anterior Cruciate Ligament) Tear; [facility] Other Postp rocedural Status [facility] [address] [facility] [place], [place] [address] Social History Tobacco Use Types Packs/Day Years Used Date Never Assessed Sex Assigned at Date Recorded Not on file documented as of this encounter Progress Notes Patricia Mckeon - 07/28/2007 5:36 PM CDT Please refer to the daily flowsheet for treatment today and total treatment time. Does this patient have Medicare or Medicaid as primary or secondary insurance? NO documented in this encounter Plan of Treatment Not on filedocumented as of this encounter Procedures Procedure Name Priority Date/Time Associated Diagnosis Comme nts Z THERAPEUTIC Routine 07/28/2007 5:37 PM ACL (Anterior Cruci ate ACTIVITIES CDT Ligament) Tear Other Postprocedural Status [facility] THERAPEUTIC Routine 07/28/2007 5:37 PM ACL (Anterior Cruci ate EXERCISES CDT Ligament) Tear Other Postprocedural Status documented in this encounter Visit Diagnoses Diagnosis ACL (anterior cruciate ligament) tear Sprain of cruciate ligament of knee Other postprocedural status(V45.89) Other postprocedural status documented in this encounter
--- OUTSIDE RECORDS SUMMARY | 2021-10-07 15:38 | XMS_ITS | Encounter Summary ---
:1985 Author Organization [place] Address [address] [place] [address] Care Team Providers Name Role Phone Unavailable Primary Care Provider Unavailable Encounter Details Date Type Department Care Team Description 05/24/2021 Travel Social History Tobacco Use Types Packs/Day Years Used Date Never Assessed Sex Assigned at Date Recorded Not on file COVID-19 Exposure Response Date Recorded In the last month, have you been in contact with No / Unsure 05/24/2021 7:59 AM CDT someone who was confirmed or suspected to have Coronavirus / COVID-19? documented as of this encounter Plan of Treatment Not on filedocumented as of this encounter Visit Diagnoses Not on filedocumented in this encounter
--- OUTSIDE RECORDS SUMMARY | 2021-10-07 15:38 | XMS_ITS | Encounter Summary ---
:1985 Author Organization [place] Address [address] [place] [address] Care Team Providers Name Role Phone Unavailable Primary Care Provider Unavailable Reason for Visit [facility] (Routine) - Closed Specialty Diagnoses / Procedures Referred By Contact Refer red To Contact Ziggy Brown FOR ATHLETIC ORTHOPAEDIC FRACTURE [facility] MED [address] [place] [phone] Fax: Referral ID Status Reason Start Date Expiration Date Visits V isits Requested Authorized HPCIGNA - KNEE Closed 07/08/2007 02/23/2008 90 88 Encounter Details Date Type Department Care Team Description 08/18/2007 [facility] Meg Kent i, PT ACL (Anterior Cruciate Ligament) Tear; [facility] [address] [address] Other Po stprocedural Status [facility] [place] [address] [address] [address] [place], [place] [address] (Work) [phone] Social History Tobacco Use Types Packs/Day Years Used Date Never Assessed Sex Assigned at Date Recorded Not on file documented as of this encounter Progress Notes Shayna Kent - 08/30/2007 6:08 PM CDT Addended by: SHAYNA KENT on: 08/30/2007 6:08:47 PM Modules accepted: Orders Shayna Kent - 08/18/2007 4:00 PM CDT Please refer to the daily flowsheet for treatment today and total treatment time. Does this patient have Medicare or Medicaid as primary or secondary insurance? NO Please refer to the discharge evaluation. documented in this encounter Plan of Treatment Not on filedocumented as of this encounter Procedures Procedure Name Priority Date/Time Associated Diagnosis Comme nts [facility] NEUROMUSCULAR Routine 08/18/2007 3:54 PM ACL (Anterior Cru ciate RE-EDUCATION CDT Ligament) Tear Other Postprocedural Status [facility] THERAPEUTIC Routine 08/18/2007 3:54 PM ACL (Anterior Cruci ate EXERCISES CDT Ligament) Tear Other Postprocedural Status documented in this encounter Visit Diagnoses Diagnosis ACL (anterior cruciate ligament) tear Sprain of cruciate ligament of knee Other postprocedural status(V45.89) Other postprocedural status documented in this encounter
--- OUTSIDE RECORDS SUMMARY | 2021-10-07 15:38 | XMS_ITS | Clinical Summary ---
:1985 Author Organization [place] Address [facility] [place] [address] Care Team Providers Name Role Phone Unavailable Primary Care Provider Unavailable Allergies Active Allergy Reactions Severity Noted Date Comments Dust Mites Unknown 02/18/2014 Medications Medication Sig Dispensed Refills Start Date End Date Status MV-Min-Fe Take 1 tablet by 0 10/22/2019 Active Fum-FA-DHA ( 1 mouth daily PO) aspirin (ASA) 81 MG Take 81 mg by 0 Active chewable tablet mouth daily Active Problems Problem Noted Date Retained placenta or membranes without hemorrhage 04/24 Cholesteatoma, right 05/17/2021 ASCUS with positive high risk HPV cervical 03/29/2015 Overview: Formatting of this note might be differe nt from the original. [place] 2009, 2010, 09/30/2011 = no dysplasi a but HPV effect. Pap 2011, 08/2013 and 08/2014 normal. Does not look like had HPV testing Above was all at another clinic, some in fo scanned in old records but did not get pathology reports. 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 Left elbow pain 09/27/2013 Estimated Date of Delivery Comments Yes 11/05/2021 Based on last menstr ual period of 01/29/2021 Resolved Problems Problem Noted Date Resolved Date ACL (anterior cruciate ligament) tear 07/08/2007 Other postprocedural status(V45.89) 07/08/200708/24 Immunizations Name Administration Dates Next Due COVID-19,PF,Moderna 01/24/2021 FLU 6-35 months 01/25/2015 Flu, Unspecified 10/12/2017 HPV Quadrivalent 09/04/2008, 06/02/2008, 03/01/2008 HepA-Adult 08/16/2010, 01/30/2009 HepB-Adult 01/18/1993, 07/04/1992, 05/31/1992 Influenza Vaccine IM > 6 months 11/07/2020, 11/07/2019, 08/2018, Valent IIV4 (Alfuria,Fluzone) 11/20/2016, 01/23/2015 Td (Adult), Adsorbed 08/02/1999 Tdap (Adacel,Boostrix) 09/06/2019, 07/11/2015, 02/09/2009 Social History Tobacco Use Types Packs/Day Years Used Date Never Assessed Estimated Date of Delivery Comments Yes 11/05/2021 Based on last menstr ual period of 01/29/2021 Sex Assigned at Date Recorded Not on file Last Filed Vital Signs Vital Sign Reading Time Taken Comments Blood Pressure 94/60 05/24/2021 9:04 AM CDT Pulse 70 05/24/2021 9:04 AM CDT Temperature - - Respiratory Rate 16 05/24/2021 9:04 AM CDT Oxygen Saturation 98% 05/24/2021 9:04 AM CDT Inhaled Oxygen Concentration - - Weight - - Height - - Body Mass Index - - Plan of Treatment Health Maintenance Due Date Last Done Comments ADVANCE CARE PLANNING 1985 ANNUAL REVIEW OF HM ORDERS 1985 PREVENTIVE CARE VISIT 1985 HIV SCREENING 05/18/2002 HEPATITIS C SCREENING 05/18/2005 PAP 05/18/2008 PHQ-2 (once per calendar 02/23/2021 year) MATERNAL SCREENING 05/14/2021 OBGCT (OB) 07/16/2021 REPEAT ANTIBODY SCREEN (OB) 08/13/2021 INFLUENZA VACCINE (#1) 2021 11/07/2020, 11/07/2019, 11/29/2018, Additional history exists DTAP/TDAP/TD IMMUNIZATION 09/05/2029 09/06/2019, 07/11/2015 , (5 - Td or Tdap) 02/09/2009, Additional history exists HEPATITIS B IMMUNIZATION Completed 01/18/1993, 07/04/1992, 05/31/1992 COVID-19 Vaccine Completed 01/24/2021, 06/07/2020, 05/10/2020 IPV IMMUNIZATION Aged Out No longer eligi ble based on patient 's age to complete this topic MENINGITIS IMMUNIZATION Aged Out No longe r eligible based on patient 's age to complete this topic Pneumococcal Vaccine: Aged Out No longer eligible Pediatrics (0 to 5 Years) based on patient's age and At-Risk Patients (6 to to co mplete this topic 64 Years) Insurance Payer Benefit Plan / Subscriber ID Effective Phone Address T ype Group Dates BCBS BCBS OUT OF STATE [id number] 2020-Pre [phone] Indemnity sent [phone] [place] [address] [facility] CIGNA [id number] 2001-Pre [phone] [employer] sent [phone] AUDREY URIOSTEGUI [id number] COMMERCIAL GENERIC [id number] 2007-Pr [address] Indemnity COMMERCIAL [facility] [place] [id number] [address] Dangelo Personal/Famil Self 1985 [address] (Home) [place] [address]
--- OUTSIDE RECORDS SUMMARY | 2021-10-07 15:38 | XMS_ITS | Encounter Summary ---
:1985 Author Organization [place] Address [address] [place] [address] Care Team Providers Name Role Phone Unavailable Primary Care Provider Unavailable Reason for Visit TOM Physical Therapy (Routine) - Closed Specialty Diagnoses / Procedures Referred By Contact Refer red To Contact Ziggy Brown FOR ATHLETIC ORTHOPAEDIC FRACTURE [facility] MED [address] [place] [address] Fax: Referral ID Status Reason Start Date Expiration Date Visits V isits Requested Authorized HPCIGNA - KNEE Closed 07/08/2007 02/23/2008 90 88 Encounter Details Date Type Department Care Team Description 07/08/2007 [facility], ACL ( Anterior Cruciate Ligament) Tear; Medicine - Shaquille Leon, PT Other Postprocedural Status [facility] [address] [place], [place] [address] [address] [place], [place] [address] [phone] Social History Tobacco Use Types Packs/Day Years Used Date Never Assessed Sex Assigned at Date Recorded Not on file documented as of this encounter Progress Notes Edward Gustafson - 07/08/2007 10:58 AM CDT Addended by: EDWARD GUSTAFSON on: 07/08/2007 10:58:50 AM Modules accepted: Orders Edward Gustafson - 07/08/2007 9:50 AM CDT Please refer to the daily flowsheet for treatment today and total treatment time. Does this patient have Medicare or Medicaid as primary or secondary insurance? NO Initial evaluation was completed. documented in this encounter Plan of Treatment Not on filedocumented as of this encounter Procedures Procedure Name Priority Date/Time Associated Diagnosis Comme nts [facility] THERAPEUTIC Routine 07/08/2007 10:57 AM ACL (Anterior Cruc iate ACTIVITIES CDT Ligament) Tear Other Postprocedural Status [facility] THERAPEUTIC Routine 07/08/2007 10:41 AM ACL (Anterior Cruc iate EXERCISES CDT Ligament) Tear Other Postprocedural Status documented in this encounter Visit Diagnoses Diagnosis ACL (anterior cruciate ligament) tear Sprain of cruciate ligament of knee Other postprocedural status(V45.89) Other postprocedural status documented in this encounter
--- OUTSIDE RECORDS SUMMARY | 2021-10-07 15:38 | XMS_ITS | Encounter Summary ---
:1985 Author Organization [place] Address [address] [place] [address] Care Team Providers Name Role Phone Unavailable Primary Care Provider Unavailable Reason for Visit TOM Physical Therapy (Routine) - Closed Specialty Diagnoses / Procedures Referred By Contact Refer red To Contact Ziggy Brown FOR ATHLETIC ORTHOPAEDIC FRACTURE [facility] MED [address] [place] [phone] Fax: Referral ID Status Reason Start Date Expiration Date Visits V isits Requested Authorized HPCIGNA - KNEE Closed 07/08/2007 02/23/2008 90 88 Encounter Details Date Type Department Care Team Description 08/04/2007 [facility] Patricia Mckeon ACL (Anterior Cruciate Ligament) Tear; [facility] Other Postp rocedural Status [facility] [address] [facility] [place], [place] [address] Social History Tobacco Use Types Packs/Day Years Used Date Never Assessed Sex Assigned at Date Recorded Not on file documented as of this encounter Progress Notes Patricia Mckeon - 08/04/2007 5:11 PM CDT Please refer to the daily flowsheet for treatment today and total treatment time. Does this patient have Medicare or Medicaid as primary or secondary insurance? NO documented in this encounter Plan of Treatment Not on filedocumented as of this encounter Procedures Procedure Name Priority Date/Time Associated Diagnosis Comme [facility] THERAPEUTIC Routine 08/04/2007 5:12 PM ACL (Anterior Cruci ate ACTIVITIES CDT Ligament) Tear Other Postprocedural Status [facility] NEUROMUSCULAR Routine 08/04/2007 5:12 PM ACL (Anterior Cru ciate RE-EDUCATION CDT Ligament) Tear Other Postprocedural Status [facility] THERAPEUTIC Routine 08/04/2007 5:12 PM ACL (Anterior Cruci ate EXERCISES CDT Ligament) Tear Other Postprocedural Status documented in this encounter Visit Diagnoses Diagnosis ACL (anterior cruciate ligament) tear Sprain of cruciate ligament of knee Other postprocedural status(V45.89) Other postprocedural status documented in this encounter
--- OUTSIDE RECORDS SUMMARY | 2021-10-07 15:38 | XMS_ITS | Encounter Summary ---
:1985 Author Organization [place] Address [address] [place] [address]. [place] [address] Care Team Providers Name Role Phone Unavailable Primary Care Provider Unavailable Encounter Details Date Type Department Care Team Description 04/24/2021 Medical Correspondence [facility] Scan, MATERNAL Health Info Mgmt Non-Provider MEDICINE CE NTER [facility] PROVIDER SERVICE [address] [place] [address] REQUEST OUTPATIENT [facility] [place] [address] [facility] [phone] [facility] Social History Tobacco Use Types Packs/Day Years Used Date Never Assessed Sex Assigned at Date Recorded Not on file documented as of this encounter Plan of Treatment Not on filedocumented as of this encounter Visit Diagnoses Not on filedocumented in this encounter
--- OUTSIDE RECORDS SUMMARY | 2021-10-07 15:38 | XMS_ITS | Encounter Summary ---
:1985 Author Organization [place] Address [address] [facility] [place] [address] Care Team Providers Name Role Phone Unavailable Primary Care Provider Unavailable Reason for Referral Diagnostic Imaging Ultrasound (Routine) - Pending Review Specialty Diagnoses / Procedures Referred By Contact Refer red To Contact Diagnoses Hx of delivery, currently , second trimester Melba Bell, Procedures [facility] US Comprehensive [facility] DO [address] [facility] [address] [place], [place] [address] Referral ID Status Reason Start Date Expiration Date Visits V isits Requested Authorized [id number] Pending 05/24/2021 05/24/2022 1 1 Review Reason for Visit Reason Comments Ultrasound 2/3 complete with TV: hx PTD Consult MF consult Consultation (Routine: Next available opening) - Pending Review Specialty Diagnoses / Procedures Referred By Contact Refer red To Contact Diagnoses related condition Jacqueline Salazar MD [facility] [address] [place] [address] Referral ID Status Reason Start Date Expiration Date Visits V isits Requested Authorized [id number] Pending 05/03/2021 05/03/2022 1 1 Review Encounter Details Date Type Department Care Team Description 05/24[facility]2021 [facility] [address], [place] [address] Hx of delivery, currently pregna nt, second trimester (Primary Dx); Maternal Melba Bell DO [address] [place], [place] [address] related condition in second tr [facility] [address] [place], [place] [address] Social History Tobacco Use Types Packs/Day Years Used Date Never Assessed Sex Assigned at Date Recorded Not on file COVID-19 Exposure Response Date Recorded In the last month, have you been in contact with No / Unsure 05/24/2021 7:59 AM CDT someone who was confirmed or suspected to have Coronavirus / COVID-19? documented as of this encounter Last Filed Vital Signs Vital Sign Reading Time Taken Comments Blood Pressure 94/60 05/24/2021 9:04 AM CDT Pulse 70 05/24/2021 9:04 AM CDT Temperature - - Respiratory Rate 16 05/24/2021 9:04 AM CDT Oxygen Saturation 98% 05/24/2021 9:04 AM CDT Inhaled Oxygen Concentration - - Weight - - Height - - Body Mass Index - - documented in this encounter Progress Notes Marine Davalos RN - 05/24/2021 8:45 AM CDT Iliana presents to [facility] for 2/3 complete with TV and MFM consult due to hx PTD at 36w4d after presenting to the hospital in labor. Pt had a successful , but retained placenta. VSS. Pt met with . Order for L2/TV placed. Marine Davalos RN Melba Bell DO - 05/24/2021 8:45 AM CDT Please see Imaging tab under Chart Review for details of today's US. Melba Bell DO documented in this encounter Plan of Treatment Not on filedocumented as of this encounter Results [facility] US Comprehensive Single (06/21/2021 11:04 AM CDT) [...] ILIANA RAMIREZ Study Date: 8:50am Pat. NO: [id number] Referring ??MD: PRINCE SALAZAR Site: [facility] Clinical Project Coordinator: Marjan Lane RD MS : 1985 Age: 36 INDICATION History of delivery. NIPT negati ve METHOD Transabdominal and transvaginal ultrasou nd approaches were used. (Transvaginal ultrasound examination was required to adequately complete the exam.). View: Sufficient [place] . Number of fetuses: 1 DATING ? Date ?Details ?Gest. age ?ZAHIRA LMP ?01/29/2021 ? 20 w + 3 d ? 11/05/2021 Prior assessment ? / 03/2021 ?GA: 7 w + 4 d [...] lb 12 ? oz EFW by ?Hadlock ([id number]) Head / Face / Neck Biometry: Seed Laboratory Technician ? 5.9 ? mm CM ?6.1 ? [...] cava. Inferior vena cava. 3-vessel ? view. 5-mzfbji-qbnyfxs view. Cardiac position. Cardiac size. Cardiac rhythm. [...] present but not detected Procedure Note Melba Bell, DO - 06/21/2021 Comprehensive Name:Ling RAMIREZ Date:06/21 8:50am Pat. NO: [id number] MD:JACQUELINE SALAZAR Site:[place]:Marjan Lane RDMS :1985Age:36 INDICATION History of delivery. [...] 0 lb 12 oz EFW by Hadlock ([id number]) Head / Face / Neck Biometry: Seed Laboratory Technician 5.9 mm CM 6.1 mm Nasal bone [...] vena cava. Inferior vena cava. 3-vessel view. 8-xzvjmj-qphnbzs view. Cardiac po sition. Cardiac size. Cardiac [...] is r eassuring. Melba Bell DO IMG [facility] US ORDERABLES documented in this encounter Visit Diagnoses Diagnosis Hx of delivery, currently pregna nt, second trimester - Primary related condition in second tr imester Unspecified complication of , a ntepartum Hx of delivery, currently pregna nt, second trimester documented in this encounter
--- OUTSIDE RECORDS SUMMARY | 2021-10-07 15:38 | XMS_ITS | Encounter Summary ---
:1985 Author Organization [place] Address [address] [facility] [place] [address] Care Team Providers Name Role Phone Melba Bell DO Unavailable [phone] Reason for Visit Reason Comments Ultrasound L2/TV- history of PTL/PTD an d covid in 1st trimester Encounter Details Date Type Department Care Team Description 06/21/2021 Office Visit [facility] Melba Bell Hx of Maternal DO Alla delivery, [facility] [address] pregna nt, second [place] 400 trimester (Primary [address] [place], [place] Dx) [address] [address] [place], [place] [phone] (Wo rk) [address] [phone] Social History Tobacco Use Types Packs/Day Years Used Date Never Assessed Sex Assigned at Date Recorded Not on file COVID-19 Exposure Response Date Recorded In the last 10 days, have you been in contact with No / Unsu re 06/21/2021 8:48 AM CDT someone who was confirmed or suspected to have Coronavirus/COVID-19? documented as of this encounter Progress Notes Melba Bell DO - 06/21/2021 9:15 AM CDT Please see Imaging tab under Chart Review for details of today's US. Melba Bell DO documented in this encounter Plan of Treatment Not on filedocumented as of this encounter Visit Diagnoses Diagnosis Hx of delivery, currently pregna nt, second trimester - Primary documented in this encounter Care Teams Travel Sales Consultant Relationship Specialty Start Date End Date Melba Bell DO Assigned OBGYN Provider 06/02/21 09/20/21 [address] [facility] [address] [place], [place] [id number] documented as of this encounter
--- OUTSIDE RECORDS SUMMARY | 2021-10-07 15:38 | XMS_ITS | Encounter Summary ---
:1985 Author Organization [place] Address [address] [facility] [place] [address] Care Team Providers Name Role Phone Unavailable Primary Care Provider Unavailable Reason for Referral Consultation (Routine: Next available opening) - Pending Review Specialty Diagnoses / Procedures Referred By Contact Refer red To Contact Diagnoses related condition Jacqueline Salazar MD [facility] [place] [address] [place] [address] Referral ID Status Reason Start Date Expiration Date Visits V isits Requested Authorized [id number] Pending 05/03/2021 05/03/2022 1 1 Review NESS PROCESS EXPERT Encounter Details Date Type Department Care Team Description 05/03/2021 Transcribe Orders [facility] Jacqueline Salazar Pr egnancy related Maternal MD Jude condition (Primary Medicine Center [facility] Dx) [place] [address], [place] [address] [phone] Social History Tobacco Use Types Packs/Day Years Used Date Never Assessed Sex Assigned at Date Recorded Not on file documented as of this encounter Plan of Treatment Scheduled Referrals Name Type Priority Associated Diagnoses Order S maryanne Nu Office Visit Referral Routine: Next related Expec desean: available opening condition 05/03/2021 (Approximate), Expires: 05/03/2022 documented as of this encounter Visit Diagnoses Diagnosis related condition - Primary Unspecified complication of , u nspecified as to episode of care documented in this encounter
--- OUTSIDE RECORDS SUMMARY | 2021-10-07 15:38 | XMS_ITS | Encounter Summary ---
:1985 Author Organization [place] Address [address] [place] [address] Care Team Providers Name Role Phone Unavailable Primary Care Provider Unavailable Reason for Visit TOM Physical Therapy (Routine) - Closed Specialty Diagnoses / Procedures Referred By Contact Refer red To Contact Ziggy Brown FOR ATHLETIC ORTHOPAEDIC FRACTURE [facility] MED [address] [place] [address] Fax: Referral ID Status Reason Start Date Expiration Date Visits V isits Requested Authorized HPCIGNA - KNEE Closed 07/08/2007 02/23/2008 90 88 Encounter Details Date Type Department Care Team Description 07/21/2007 [facility] Mckeon ACL (Anterior Cruciate Ligament) [facility]; [facility] Other Postp rocedural Status [facility] [address] [facility] [place], [place] [address] Social History Tobacco Use Types Packs/Day Years Used Date Never Assessed Sex Assigned at Date Recorded Not on file documented as of this encounter Progress Notes Patricia Mckeon - 07/21/2007 5:41 PM CDT Please refer to the daily flowsheet for treatment today and total treatment time. Does this patient have Medicare or Medicaid as primary or secondary insurance? NO documented in this encounter Plan of Treatment Not on filedocumented as of this encounter Procedures Procedure Name Priority Date/Time Associated Diagnosis Comme nts [facility] THERAPEUTIC Routine 07/21/2007 5:43 PM ACL (Anterior Cruci ate ACTIVITIES CDT Ligament) Tear Other Postprocedural Status [facility] NEUROMUSCULAR Routine 07/21/2007 5:43 PM ACL (Anterior Cru ciate RE-EDUCATION CDT Ligament) Tear Other Postprocedural Status [facility] THERAPEUTIC Routine 07/21/2007 5:43 PM ACL (Anterior Cruci ate EXERCISES CDT Ligament) Tear Other Postprocedural Status documented in this encounter Visit Diagnoses Diagnosis ACL (anterior cruciate ligament) tear Sprain of cruciate ligament of knee Other postprocedural status(V45.89) Other postprocedural status documented in this encounter
--- OUTSIDE RECORDS SUMMARY | 2021-10-07 15:38 | XMS_ITS | Encounter Summary ---
:1985 Author Organization [place] Address [address] [facility] [place] [address] Care Team Providers Name Role Phone Melba Bell DO Unavailable [phone] Encounter Details Date Type Department Care Team Description 06/21/2021 Travel Social History Tobacco Use Types Packs/Day Years Used Date Never Assessed Sex Assigned at Date Recorded Not on file COVID-19 Exposure Response Date Recorded In the last 10 days, have you been in contact with No / Unsu re 06/21/2021 8:48 AM CDT someone who was confirmed or suspected to have Coronavirus/COVID-19? documented as of this encounter Plan of Treatment Not on filedocumented as of this encounter Visit Diagnoses Not on filedocumented in this encounter Care Teams Rn Case Manager Hospice Relationship Specialty Start Date End Date Melba Bell DO Assigned OBGYN Provider 06/02/21 09/20/[address] [place], [place] [address] documented as of this encounter
--- OUTSIDE RECORDS SUMMARY | 2021-10-07 15:38 | XMS_ITS | Encounter Summary ---
:1985 Author Organization [place] Address [address] [place] [address] Care Team Providers Name Role Phone Unavailable Primary Care Provider Unavailable Reason for Referral Diagnostic Imaging Ultrasound (Routine) - Pending Review Specialty Diagnoses / Procedures Referred By Contact Refer red To Contact Diagnoses Hx of delivery, currently , second trimester Terry Benítez MD Procedures MF US OB Complete 2/3 Tri Single [address] [place], [place] [address] Referral ID Status Reason Start Date Expiration Date Visits V isits Requested Authorized [id number] Pending 05/03/2021 05/03/2022 1 1 Review ING EXAMINER Encounter Details Date Type Department Care Team Description 05/03/2021 Orders Only [facility], Hx of pr eterm Maternal Jonelle K, delivery associate, [facility] [place] trimester (Primary Dx) [address] [place], [place] [address] Social History Tobacco Use Types Packs/Day Years Used Date Never Assessed Sex Assigned at Date Recorded Not on file documented as of this encounter Plan of Treatment Not on filedocumented as of this encounter Results MFM US OB Complete 2/3 Tri Single (05/24/2021 [...] ILIANA RAMIREZ Study Date: 8:04am Pat. NO: [id number] Referring ??: PRINCE SALAZAR Site: [facility] Hairpiece Stylist: Fernando Matthews RDMS : 1985 Age: 36 [...] 0 lb 5 ?oz EFW by ?Hadlock ([id number]) Head / Face / Neck Biometry: Ditcher ? 5.4 ? mm CM ?2.9 ? [...] cava. Inferior vena cava. 3-vessel ? view. 7-hbyqcn-tayzhoa view. Cardiac position. Cardiac size. Cardiac rhythm. [...] Ovary ?Visualized Left Ovary ?Visualized CONSULTATION Type: [facility] CONSULTATION Dear Dr. Salazar, Thank you for [...] fully vaccinated. 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 Kimber ined placenta, [...] 48% in Vogel). The current conclusion of [facility] is that it is reasonable to offer 17-OHP to women with a profile mor e career services representative of the very high risk patient, but that all women at risk of recurrent should have a discussion of the risks/benefits and undergo a shared deci alex-making process. After the publication of the Vogel ( PROLONG) study an FDA Advisory Committee recommended withdrawing Shayla (17 - OHP) off the market. The FDA decision is still pending. [facility] did not change their position. ACOG [...] invasive route and will likely go to [place] on Thursday to have cell free DNA drawn. She can contact our office early next week if Dr. Salazar' office ca nnot get her in for it. We discussed what the results might mean if low risk/high risk, but can provide further information if needed. Recommendations: - Cell free DNA screening to be performe d through [place]. - Baseline transvaginal cervical length at 16 weeks' gestation with measurements every 2 weeks through 23 weeks. - [place] to perform the TVUS for CL at 18 and 22 weeks. - [facility] will perform a comprehensive US at [...] RECOMMENDATION We discussed the findings on today's [facility] with the patient. See consultation above for details. A repeat ultrasound has been scheduled h ere in 4 weeks for a comprehensive US. Return to primary provider for continued care. Thank you for the opportunity to partici wharton in the care of this patient. If you have questions regarding today's evaluation or if we can be of further service, please contact the [facility]. anomalies may be present but not detected Procedure Note Melba Bell, DO - 05/24/2021 / Trim Name:Ling RAMIREZ Date:05/24 8:04am Pat. NO: [id number] MD:JUSTIN SALAZAR [facility]Fernando Matthews RDMS :1985Age:36 INDICATION Survey METHOD Transabdominal [...] 0 lb 5 oz EFW by Hadlock ([id number]) Head / Face / Neck Biometry: Ditcher 5.4 mm CM 2.9 mm Nasal bone [...] vena cava. Inferior vena cava. 3-vessel view. 5-qvkicp-zmiihnz view. Cardiac po sition. Cardiac size. Cardiac [...] Ovary Visualized Left Ovary Visualized CONSULTATION Type: [facility] CONSULTATION Dear Dr. Salazar, Thank you for [...] fully vaccinated. 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 Kimber ined [...] 48% in Vogel). The current conclusion of [facility] is that it is reasonable to offer 17-OHP to women with a profile mor e career services representative of the very high risk patient, but that all women at risk of recurrent should have a discussion of the risks/benefits and undergo a shared deci alex-making process. After the publication of the Lela ( PROLONG) study an FDA Advisory Committee recommended withdrawing [place] (17 - OHP) off the market. The FDA decision is still pending. [facility] did not change their position. ACOG [...] free DNA screening versus amniocentesis. The mar lucero prefers a non invasive route and will likely go to [place] on Thursday to have cell free DNA drawn. She can contact our office early next week if Dr. Salazar' office ca sol get her in for it. We discussed what the results might mean if low risk/high risk, but can provide further information if needed. Recommendations: - Cell free DNA screening to be performe d through [place]. - Baseline transvaginal cervical length at 16 weeks' gestation with measurements every 2 weeks through 23 weeks. - [place] to perform the TVUS for CL at 18 and 22 weeks. - [facility] will perform a comprehensive US at [...] chart review - 6 min documentation Melba Bell, Maternal Medicine RECOMMENDATION We discussed the findings on today's ult rasound with the patient. See consultation above for details. A repeat ultrasound has been scheduled h [facility] in 4 weeks for a comprehensive [...] length is r eassuring. Terry Benítez MD [facility] US ORDERABLES documented in this encounter Visit Diagnoses Diagnosis Hx of delivery, currently pregna nt, second trimester - Primary Hx of delivery, currently pregna nt, second trimester documented in this encounter
[2021-10-09 08:28] LABS: Strep B DNA Probe NEGATIVE (Negative)
== END 2021-10-07 15:28 | disposition home or self-care (01) ==
LOC: NFLDREF 15:27
PROVIDERS: PCP Family Medicine; Visit Provider Obstetrics & Gynecology
DX: Z34.93 Encounter for supervision of normal pregnancy, unspecified, third trimester (principal); Z3A.37 37 weeks gestation of pregnancy
CPT/HCPCS: 76816; 87081; 87653

== ENCOUNTER 2021-10-16 07:23 | Outpatient (CLI) | payer BC, SELFPAY ==
--- OUTSIDE RECORDS SUMMARY | 2021-10-16 07:25 | XMS_ITS | Encounter Summary ---
:1985 Author Organization [place] Address [address] [facility] [place] [address] Care Team Providers Name Role Phone Unavailable Primary Care Provider Unavailable Reason for Referral Diagnostic Imaging Ultrasound (Routine) - Pending Review Specialty Diagnoses / Procedures Referred By Contact Refer red To Contact Diagnoses Hx of delivery, currently , second trimester Melba Bell, Procedures [facility] US Comprehensive [facility] DO [address] [facility] [address] [place], [place] [address] Referral ID Status Reason Start Date Expiration Date Visits V isits Requested Authorized [id number] Pending 05/24/2021 05/24/2022 1 1 Review Reason for Visit Reason Comments Ultrasound 2/3 complete with TV: hx PTD Consult MF consult Consultation (Routine: Next available opening) - Pending Review Specialty Diagnoses / Procedures Referred By Contact Refer red To Contact Diagnoses related condition Jacqueline Salazar MD [facility] [address] [place] [address] Referral ID Status Reason Start Date Expiration Date Visits V isits Requested Authorized [id number] Pending 05/03/2021 05/03/2022 1 1 Review Encounter Details Date Type Department Care Team Description 05/24/2021 [facility] [address], [place] [address] Hx of delivery, currently pregna nt, second trimester (Primary Dx); Maternal Melba Bell DO [address] [place], [place] [address] related condition in second tr [facility] [address] [place], [place] [address] Social History Tobacco Use Types Packs/Day Years [...] 05/24/2021 8:45 AM CDT Iliana presents to [facility] for 2/3 complete with TV and [...] on filedocumented as of this encounter Results [facility] US Comprehensive Single (06/21/2021 11:04 AM CDT) [...] ILIANA RAMIREZ Study Date: 8:50am Pat. NO: [id number] Referring ??MD: PRINCE SALAZAR Site: [facility] [place] Polisher: Marjan Lane RD MS : 1985 Age: [...] lb 12 ? oz EFW by ?Hadlock (TLE-VC-CI-FL) Head / Face / Neck Biometry: Chief Psychologist ? 5.9 ? mm CM ?6.1 ? [...] cava. Inferior vena cava. 3-vessel ? view. 8-ldxvab-eqhxvrl view. Cardiac position. Cardiac size. Cardiac rhythm. [...] Comprehensive Name:Ling RAMIREZ Date:06/21 8:50am Pat. NO: [id number] MD:JACQUELINE SALAZAR Site:[facility]er:Marjan Lane RDMS :1985Age:36 INDICATION History of delivery. [...] 0 lb 12 oz EFW by Hadlock ([id number]-[id number]-FL) Head / Face / Neck Biometry: Chief Psychologist 5.9 mm CM 6.1 mm Nasal bone [...] vena cava. Inferior vena cava. 3-vessel view. 2-wolfdj-psvfuab view. Cardiac po sition. Cardiac size. Cardiac [...] is r eassuring. Melba Bell DO IMG [facility] US ORDERABLES documented in this encounter Visit Diagnoses Diagnosis Hx of delivery, currently pregna nt, second trimester - Primary related condition in second tr imester Unspecified complication of , a ntepartum Hx of delivery, currently pregna nt, second trimester documented in this encounter
--- OUTSIDE RECORDS SUMMARY | 2021-10-16 07:25 | XMS_ITS | Encounter Summary ---
:1985 Author Organization [place] Address [address] [place] [address] Care Team Providers Name Role Phone Unavailable Primary Care Provider Unavailable Reason for Visit [facility] (Routine) - Closed Specialty Diagnoses / Procedures Referred By Contact Refer red To Contact Ziggy Brown FOR ATHLETIC ORTHOPAEDIC FRACTURE [facility] [address] [place] [phone] Fax: Referral ID Status Reason Start Date Expiration Date Visits V isits Requested Authorized HPCIGNA - KNEE Closed 07/08/2007 02/23/2008 90 88 Encounter Details Date Type Department Care Team Description 08/04/2007 [facility] Mckeon ACL (Anterior Cruciate Ligament) Tear; [facility] Other Postp rocedural Status [facility] [address] [facility] [place], [place] [address] Social History Tobacco Use Types Packs/Day Years [...] Procedure Name Priority Date/Time Associated Diagnosis [facility]me [facility] THERAPEUTIC Routine 08/04/2007 5:12 PM ACL (Anterior Cruci ate ACTIVITIES CDT Ligament) Tear Other Postprocedural Status [facility] NEUROMUSCULAR Routine 08/04/2007 5:12 PM ACL (Anterior Cru ciate RE-EDUCATION CDT Ligament) Tear Other Postprocedural Status [facility] THERAPEUTIC Routine 08/04/2007 5:12 PM ACL (Anterior Cruci ate EXERCISES CDT Ligament) Tear Other Postprocedural Status documented in this encounter Visit Diagnoses Diagnosis ACL (anterior cruciate ligament) tear Sprain of cruciate ligament of knee Other postprocedural status(V45.89) Other postprocedural status documented in this encounter
--- OUTSIDE RECORDS SUMMARY | 2021-10-16 07:25 | XMS_ITS | Encounter Summary ---
:1985 Author Organization [place] Address [address] [place] [address] Care Team Providers Name Role Phone Unavailable Primary Care Provider Unavailable Reason for Visit [facility] (Routine) - Closed Specialty Diagnoses / Procedures Referred By Contact Refer red To Contact Ziggy Brown FOR ATHLETIC ORTHOPAEDIC FRACTURE [facility] [address] [place] [phone] Fax: Referral ID Status Reason Start Date Expiration Date Visits V isits Requested Authorized HPCIGNA - KNEE Closed 07/08/2007 02/23/2008 90 88 Encounter Details Date Type Department Care Team Description 08/11/2007 [facility] Mckeon ACL (Anterior Cruciate Ligament) Tear; [facility] Other Postp rocedural Status [facility] [address] [facility] [place], [place] [address] Social History Tobacco Use Types Packs/Day Years [...] ACTIVITIES CDT Ligament) Tear Other Postprocedural Status [facility] Routine 08/11/2007 1:02 PM ACL (Anterior Cru ciate RE-EDUCATION CDT Ligament) Tear Other Postprocedural Status [facility] THERAPEUTIC Routine 08/11/2007 1:02 PM ACL (Anterior Cruci ate EXERCISES CDT Ligament) Tear Other Postprocedural Status documented in this encounter Visit Diagnoses Diagnosis ACL (anterior cruciate ligament) tear Sprain of cruciate ligament of knee Other postprocedural status(V45.89) Other postprocedural status documented in this encounter
--- OUTSIDE RECORDS SUMMARY | 2021-10-16 07:25 | XMS_ITS | Encounter Summary ---
:1985 Author Organization [place] Address [address] [facility] [place] [address] Care Team Providers Name Role Phone Melba Bell DO Unavailable [phone] Encounter Details Date Type Department Care [...] on filedocumented in this encounter Care Teams Asbestos Shingle Inspector Relationship Specialty Start Date End Date Melba Bell DO Assigned OBGYN Provider 06/02/21 09/20/[address] [place], [place] [address] documented as of this encounter
--- OUTSIDE RECORDS SUMMARY | 2021-10-16 07:25 | XMS_ITS | Encounter Summary ---
:1985 Author Organization [place] Address [address] [place] [address]. [place] [address] Care Team Providers Name Role Phone Unavailable Primary Care Provider Unavailable Encounter Details Date Type Department Care Team Description 04/24/2021 Medical Correspondence [facility] Scan, MATERNAL Health Info Mgmt Non-Provider MEDICINE CE NTER [facility] PROVIDER SERVICE [address] [place] [address] REQUEST [place]PATIENT [place] [address] [facility] [phone] [facility] Social History Tobacco Use Types Packs/Day Years Used Date Never Assessed Sex Assigned at Date Recorded Not on file documented as of this encounter Plan of Treatment Not on filedocumented as of this encounter Visit Diagnoses Not on filedocumented in this encounter
--- OUTSIDE RECORDS SUMMARY | 2021-10-16 07:25 | XMS_ITS | Encounter Summary ---
:1985 Author Organization [place] Address [address] [place] [address] Care Team Providers Name Role Phone Unavailable Primary Care Provider Unavailable Reason for Referral Consultation (Routine) - Pending Review Specialty Diagnoses / Procedures Referred By Contact Refer red To Contact Diagnoses related condition, antepartum Jacqueline Salazar MD [facility] [address] [place] [address] Referral ID Status Reason Start Date Expiration Date Visits V isits Requested Authorized [id number] Pending 05/03/2021 05/03/2022 1 1 Review ECTIONS SPECIALIST Encounter Details Date Type Department Care Team Description 05/03/2021 Transcribe Orders [facility] Jacqueline Salazar Pr egnancy related Maternal MD Jude condition, Medicine Center [facility] antepartum ( Primary [place] [facility] Dx) [address] [facility] [address] [place] [phone] Social History Tobacco Use Types Packs/Day Years [...]
--- OUTSIDE RECORDS SUMMARY | 2021-10-16 07:25 | XMS_ITS | Encounter Summary ---
:1985 Author Organization [place] Address [address] [facility] [place] [address] Care Team Providers Name Role Phone Unavailable Primary Care Provider Unavailable Reason for Referral Consultation (Routine: Next available opening) - Pending Review Specialty Diagnoses / Procedures Referred By Contact Refer red To Contact Diagnoses related condition Jacqueline Salazar MD [facility] [address] [place] [address] Referral ID Status Reason Start Date Expiration Date Visits V isits Requested Authorized [id number] Pending 05/03/2021 05/03/2022 1 1 Review DECORATOR Encounter Details Date Type Department Care Team Description 05/03/2021 Transcribe Orders [facility] Jacqueline Salazar Pr egnancy related Maternal MD Jude condition (Primary Medicine Center [facility] Dx) [place] [address], [place] [address] [phone] Social History Tobacco Use Types Packs/Day Years [...]
--- OUTSIDE RECORDS SUMMARY | 2021-10-16 07:25 | XMS_ITS | Encounter Summary ---
:1985 Author Organization [place] Address [address] [facility] [place] [address] Care Team Providers Name Role Phone Melba Bell DO Unavailable [phone] Reason for Visit Reason Comments Ultrasound L2/TV- history of PTL/PTD an d covid in 1st trimester Encounter Details Date Type Department Care Team Description 06/21/2021 Office Visit [facility] Melba Bell Hx of Maternal DO Alla delivery, [facility] [address] pregna nt, second [place] 400 trimester (Primary [address] [place], [place] Dx) [address] [address] [place], [place] [phone] (Wo rk) [address] [phone] Social History Tobacco Use Types Packs/Day Years [...] Primary documented in this encounter Care Teams Complaint Evaluation Officer Relationship Specialty Start Date End Date Melba Bell DO Assigned OBGYN Provider 06/02/21 09/20/21 [address] [facility] [address] [place], [place] [id number] documented as of this encounter
--- OUTSIDE RECORDS SUMMARY | 2021-10-16 07:25 | XMS_ITS | Encounter Summary ---
:1985 Author Organization [place] Address [address] [place] [address] Care Team Providers Name Role Phone Unavailable Primary Care Provider Unavailable Reason for Referral Diagnostic Imaging Ultrasound (Routine) - Pending Review Specialty Diagnoses / Procedures Referred By Contact Refer red To Contact Diagnoses Hx of delivery, currently , second trimester Terry Benítez MD Procedures MF US OB Complete 2/3 Tri Single [address] [place], [place] [address] Referral ID Status Reason Start Date Expiration Date Visits V isits Requested Authorized [id number] Pending 05/03/2021 05/03/2022 1 1 Review HOUSE GUARD Encounter Details Date Type Department Care Team Description 05/03/2021 Orders Only [facility], Hx of pr eterm Maternal Jonelle K, delivery driver/customer service, [facility] se cond [place] trimester (Primary Dx) [address] [place], [place] [address] Social History Tobacco Use Types Packs/Day Years [...] ILIANA RAMIREZ Study Date: 8:04am Pat. NO: [id number] Referring ??: PRINCE SALAZAR Site: [facility] Supervisor Harvesting: Fernando Matthews RDMS : 1985 Age: 36 [...] 0 lb 5 ?oz EFW by ?Hadlock (GQJ-[id number]-IA) Head / Face / Neck Biometry: Record Clerk ? 5.4 ? mm CM ?2.9 ? [...] cava. Inferior vena cava. 3-vessel ? view. 2-svddrj-yegshvy view. Cardiac position. Cardiac size. Cardiac rhythm. [...] Ovary ?Visualized Left Ovary ?Visualized CONSULTATION Type: [facility] CONSULTATION Dear Dr. 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 The current conclusion of [facility] is that it is reasonable to offer 17-OHP to women with a profile mor e mill representative of the very high risk patient, but that all women at risk of recurrent should have a discussion of the risks/benefits and undergo a shared deci alex-making process. After the publication of the Vogel ( PROLONG) study an FDA Advisory Committee recommended withdrawing Shayla (17 - OHP) off the market. The FDA decision is still pending. [facility] did not change their position. ACOG [...] invasive route and will likely go to [place] on Thursday to have cell free DNA drawn. She can contact our office early next week if Dr. Salazar' office ca nnot get her in for it. We discussed what the results might mean if low risk/high risk, but can provide further information if needed. Recommendations: - Cell free DNA screening to be performe d through [place]. - Baseline transvaginal cervical length at 16 weeks' gestation with measurements every 2 weeks through 23 weeks. - [place] to perform the TVUS for CL at 18 and 22 weeks. - [facility] will perform a comprehensive US at 20 [...] RECOMMENDATION We [facility] the [facility] with the patient. See consultation above for [...] Trim Name:Ling RAMIREZ Date:05/24 8:04am Pat. NO: [id number] MD:JUSTIN SALAZAR [facility]rapher:Fernando Matthews RDMS :1985Age:36 INDICATION Survey METHOD Transabdominal [...] 0 lb 5 oz EFW by Hadlock (AHM-XP-HV-FL) Head / Face / Neck Biometry: Record Clerk 5.4 mm CM 2.9 mm Nasal bone [...] vena cava. Inferior vena cava. 3-vessel view. 8-zgmwlp-soawlpq view. Cardiac po sition. Cardiac size. Cardiac [...] Ovary Visualized Left Ovary Visualized CONSULTATION Type: [facility] CONSULTATION Dear Dr. 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 The current conclusion of [facility] is that it is reasonable to offer 17-OHP to women with a profile mor e mill representative of the very high risk patient, but that all women at risk of recurrent should have a discussion of the risks/benefits and undergo a shared deci alex-making process. After the publication of the [place] ( PROLONG) study an FDA Advisory Committee recommended withdrawing [place] (17 - OHP) off the market. The FDA decision is still pending. [facility] did not change their position. ACOG [...] invasive route and will likely go to [place] on Thursday to have cell free DNA drawn. She can contact our office early next week if Dr. Salazar' office ca sol get her in for it. We discussed what the results might mean if low risk/high risk, but can provide further information if needed. Recommendations: - Cell free DNA screening to be performe d through [place]. - Baseline transvaginal cervical length at 16 weeks' gestation with measurements every 2 weeks through 23 weeks. - [place] to perform the TVUS for CL at 18 and 22 weeks. - [facility] will perform a comprehensive US at 20 [...] A repeat ultrasound has been scheduled h [facility] in 4 weeks for a comprehensive [...] length is r eassuring. Terry Benítez MD [facility] US ORDERABLES documented in this encounter Visit Diagnoses Diagnosis Hx of delivery, currently pregna nt, second trimester - Primary Hx of delivery, currently pregna nt, second trimester documented in this encounter
--- OUTSIDE RECORDS SUMMARY | 2021-10-16 07:25 | XMS_ITS | Encounter Summary ---
:1985 Author Organization [place] Address [address] [facility] [place] [address] Care Team Providers Name Role Phone Unavailable Primary Care Provider Unavailable Reason for Visit [facility] Physical Therapy (Routine) - Closed Specialty Diagnoses / Procedures Referred By Contact Refer red To Contact Ziggy Brown FOR ATHLETIC ORTHOPAEDIC FRACTURE [facility] MED [address] [place] [phone] Fax: Referral ID Status Reason Start Date Expiration Date Visits V isits Requested Authorized HPCIGNA - KNEE Closed 07/08/2007 02/23/2008 90 88 Encounter Details Date Type Department Care Team Description 07/08/2007 [facility], ACL ( Anterior Cruciate Ligament) Tear; Medicine - Shaquille Leon, PT Other Postprocedural Status [facility] [address] [place], [place] [address] [address] [place], [place] [address] [phone] Social History Tobacco Use Types Packs/Day Years [...] Name Priority Date/Time Associated Diagnosis Comme nts [facility] THERAPEUTIC Routine 07/08/2007 10:57 AM ACL (Anterior Cruc iate ACTIVITIES CDT Ligament) Tear Other Postprocedural Status [facility] THERAPEUTIC Routine 07/08/2007 10:41 AM ACL (Anterior Cruc iate EXERCISES CDT Ligament) Tear Other Postprocedural Status documented in this encounter Visit Diagnoses Diagnosis ACL (anterior cruciate ligament) tear Sprain of cruciate ligament of knee Other postprocedural status(V45.89) Other postprocedural status documented in this encounter
--- OUTSIDE RECORDS SUMMARY | 2021-10-16 07:25 | XMS_ITS | Encounter Summary ---
:1985 Author Organization [place] Address [address] [facility] [place] [address] Care Team Providers Name Role Phone Unavailable Primary Care Provider Unavailable Reason for Referral Diagnostic Imaging Ultrasound (Routine) - Pending Review Specialty Diagnoses / Procedures Referred By Contact Refer red To Contact Diagnoses Hx of delivery, currently , second trimester Terry Benítez MD Procedures [facility] US OB Complete 2/[address] [place], [place] [address] Referral ID Status Reason Start Date Expiration Date Visits V isits Requested Authorized [id number] Pending 05/03/2021 05/03/2022 1 1 Review Reason for Visit Diagnostic Imaging Ultrasound (Routine) - Pending Review Specialty Diagnoses / Procedures Referred By Contact Refer red To Contact Diagnoses Hx of delivery, currently , second trimester Terry Benítez MD Procedures [facility] US OB Complete 2/3 Tri Single [address] [place], [place] [address] Referral ID Status Reason Start Date Expiration Date Visits V isits Requested Authorized [id number] Pending 05/03/2021 05/03/2022 1 1 Review Encounter Details Date Type Department Care Team Description 05/24/2021 Hospital Encounter [facility] Santiago Benítez MD [address] [place] [address] Hx of Maternal Melba Bell, DO [address] [place] [address] delivery, currently [facility] , se cond [place] trimester [address] [place] [address] Social History Tobacco Use Types [...] Name Priority Date/Time Associated Diagnosis Comme nts [facility] US OB COMPLETE Routine 05/24/2021 9:07 AM Hx of Re sults for this 2/3 TRI SINGLE CDT delivery, currently proced ure are in , second the results trimester section. documented in this encounter Results [facility] US OB Complete 2/3 Tri Single (05/24/2021 [...] ILIANA RAMIREZ Study Date: 8:04am Pat. NO: [id number] Referring ??MD: PRINCE SALAZAR Site: [facility] Field Installation Technician: Fernando Matthews RDMS : 1985 Age: [...] 0 lb 5 ?oz EFW by ?Hadlock ([id number]) Head / Face / Neck Biometry: Dinkey Mechanic ? 5.4 ? mm CM ?2.9 ? [...] cava. Inferior vena cava. 3-vessel ? view. 0-mmmroi-ugfidum view. Cardiac position. Cardiac size. Cardiac rhythm. 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 The current conclusion of [facility] is that it is reasonable to offer 17-OHP to women with a profile mor e office machines sales representative of the very high risk patient, but that all women at risk of recurrent should have a discussion of the risks/benefits and undergo a shared deci alex-making process. After the publication of the [place] ( PROLONG) study an FDA Advisory Committee recommended withdrawing [place] (17 - OHP) off the market. The FDA decision is still pending. [facility] did not change their position. ACOG [...] invasive route and will likely go to [facility] on Thursday to have cell free DNA drawn. She can contact our office early next week if Dr. Salazar' office ca nnot get her in for it. We discussed what the results might mean if low risk/high risk, but can provide further information if needed. Recommendations: - Cell free DNA screening to be performe d through [facility]. - Baseline transvaginal cervical length at 16 weeks' gestation with measurements every 2 weeks through 23 weeks. - [facility] to perform the TVUS for CL at 18 and 22 weeks. - [facility] will perform a comprehensive US at 20 [...] A repeat ultrasound has been scheduled h [facility] in 4 weeks for a comprehensive [...] Pat. Name:Ling RAMIREZ Date:05/24 8:04am Pat. NO: [id number] MD:JUSTIN SALAZAR [facility]Fernando Matthews RDMS :1985Age:36 INDICATION Survey METHOD [...] 0 lb 5 oz EFW by Hadlock ([id number]) Head / Face / Neck Biometry: Dinkey Mechanic 5.4 mm CM 2.9 mm Nasal bone [...] vena cava. Inferior vena cava. 3-vessel view. 4-hfvykl-hokfspu view. Cardiac po sition. Cardiac size. 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 The current conclusion of [facility] is that it is reasonable to offer 17-OHP to women with a profile mor e office machines sales representative of the very high risk patient, but that all women at risk of recurrent should have a discussion of the risks/benefits and undergo a shared deci alex-making process. After the publication of the [place] ( PROLONG) study an FDA Advisory Committee recommended withdrawing [place] (17 - OHP) off the market. The FDA decision is still pending. [facility] did not change their position. ACOG [...] invasive route and will likely go to [facility] on Thursday to have cell free DNA drawn. She can contact our office early next week if Dr. Salazar' office ca nnot get her in for it. We discussed what the results might mean if low risk/high risk, but can provide further information if needed. Recommendations: - Cell free DNA screening to be performe d through [facility]. - Baseline transvaginal cervical length at 16 weeks' gestation with measurements every 2 weeks through 23 weeks. - [facility] to perform the TVUS for CL at 18 and 22 weeks. - [facility] will perform a comprehensive US at 20 [...] length is r eassuring. Terry Benítez MD [facility] ORDER[facility] documented in this encounter Visit Diagnoses Diagnosis Hx of delivery, currently pregna nt, second trimester documented in this encounter
--- OUTSIDE RECORDS SUMMARY | 2021-10-16 07:25 | XMS_ITS | Encounter Summary ---
:1985 Author Organization [place] Address [address] [place] [address] Care Team Providers Name Role Phone Unavailable [...]
--- OUTSIDE RECORDS SUMMARY | 2021-10-16 07:25 | XMS_ITS | Encounter Summary ---
:1985 Author Organization [place] Address [address] [place] [address] Care Team Providers Name Role Phone Unavailable Primary Care Provider Unavailable Reason for Visit [facility] (Routine) - Closed Specialty Diagnoses / Procedures Referred By Contact Refer red To Contact Ziggy Brown FOR ATHLETIC ORTHOPAEDIC FRACTURE [facility] MED [address] [place] [phone] Fax: Referral ID Status Reason Start Date Expiration Date Visits V isits Requested Authorized HPCIGNA - KNEE Closed 07/08/2007 02/23/2008 90 88 Encounter Details Date Type Department Care Team Description 07/28/2007 [facility] Mckeon ACL (Anterior Cruciate Ligament) Tear; [facility] Other Postp rocedural Status [facility] [address] [facility] [place], [place] [address] Social History Tobacco Use Types Packs/Day Years [...] ACTIVITIES CDT Ligament) Tear Other Postprocedural Status [facility] THERAPEUTIC Routine 07/28/2007 5:37 PM ACL (Anterior Cruci ate EXERCISES CDT Ligament) Tear Other Postprocedural Status documented in this encounter Visit Diagnoses Diagnosis ACL (anterior cruciate ligament) tear Sprain of cruciate ligament of knee Other postprocedural status(V45.89) Other postprocedural status documented in this encounter
--- OUTSIDE RECORDS SUMMARY | 2021-10-16 07:25 | XMS_ITS | Encounter Summary ---
:1985 Author Organization [place] Address [address] [facility] [place] [address] Care Team Providers Name Role Phone Unavailable Primary Care Provider Unavailable Reason for Visit Reason Comments Ultrasound 2/3+TV- hx PTL/PTD, 1st tri Covid Consult MFM- hx PTL/PTD, 1st tri Cov id Encounter Details Date Type Department Care Team Description 05/17/2021 PRE VISIT [facility] Maricruz Andrade nd (2/3+TV- hx Maternal Jonelle Raz RN PTL/PTD, 1st [facility] Covid); Cons ult ([facility] hx PTL/PTD, 1st tri [address] [place]) [place], [place] [address] Social History Tobacco Use Types Packs/Day Years Used Date Never Assessed Sex Assigned at Date Recorded Not on file documented as of this encounter Plan of Treatment Not on filedocumented as of this encounter Visit Diagnoses Not on filedocumented in this encounter
--- OUTSIDE RECORDS SUMMARY | 2021-10-16 07:25 | XMS_ITS | Encounter Summary ---
:1985 Author Organization [place] Address [address] [place] [address] Care Team Providers Name Role Phone Unavailable Primary Care Provider Unavailable Reason for Visit [facility] (Routine) - Closed Specialty Diagnoses / Procedures Referred By Contact Refer red To Contact Ziggy Brown FOR ATHLETIC ORTHOPAEDIC FRACTURE [facility] MED [address] [place] [phone] Fax: Referral ID Status Reason Start Date Expiration Date Visits V isits Requested Authorized HPCIGNA - KNEE Closed 07/08/2007 02/23/2008 90 88 Encounter Details Date Type Department Care Team Description 08/18/2007 [facility] Meg Kent i, PT ACL (Anterior Cruciate Ligament) Tear; [facility] [address] [address] [place] Other Po stprocedural Status [facility] [place] [address] [address] [address] [place], [place] [address] (Work) [phone] Social History Tobacco Use Types Packs/Day Years [...]
[2021-10-16 07:39] VITALS: BP 110/64; PULSE 79
[2021-10-16 07:40] VITALS: RESP 16; TEMP 37.1
[2021-10-16] MEDS: TERBUTALINE 1 MG/ML INJ 0.25 MG SUBCUT (08:18)
--- NOTE | 2021-10-16 08:44 | P.OBO_ITS ---
OB Outpatient HPI History of Present Illness Time Seen by Provider: 08:44 Date Seen: 10/16/21 History of Present Illness: 36 year old at 37 1/7 weeks gestation by LMP, ZAHIRA 11/05/2021, presents for external cephalic version. Her fetus has been in a breech presentation since about 32 weeks gestation. She feels well this morning. Informed consent was obtained for the procedure. Baby moving naturally: Yes Bleeding: No Contractions: No Leaking fluid: No Discharge: No Heartburn: No Back pain: No Meds Home Medications and Allergies Home Medications Medication Instructions Recorded Confirmed Type docosahexaenoic acid 200 mg mg PO 09/02/21 10/07/21 History capsule ( DHA) Allergies Allergy/AdvReac Type Severity Reaction Status Date / Time No Known Allergies Allergy Verified 10/16/21 08:38 [facility] Medical History History of spontaneous (12/22/17) Molar (08/10/18) Surgical History History of section (09/16/15) History of ear surgery History of elbow surgery History of repair of anterior cruciate ligament of right knee (~2007) History of wisdom tooth extraction (~2006) S/P tonsillectomy and adenoidectomy (~1997) Status post delivery (09/16/15) Status post dilation and curettage (2018) Social History Smoking Status: Never smoker How often do you have a drink containing alcohol: never AUDIT-C Alcohol total score: 0 Non-prescribed substance use: denies use Are you now , , , , never or living with a partner: Social isolation score (0-1 are the most socially isolated patients): 1 History History 5 Elective abortions Para 1 Spontaneous abortions 2 Hx # Term Pregnancies 1 Ectopic pregnancies 0 Hx # Pregnancies 1 Multiple births 0 Number of Living Children 2 Past Pregnancies Del. Date GA/Weeks Outcome Route wt Inf Gender Labor Lgth Anesthesia Location Provider Compli 09/16/15 38 live - full term low transverse 6 lb 14 oz Female 6 h spinal [facility] 10/21/19 36 live - full term 6 lb 7 oz Male 8 h epi dural [facility] Delivery Date: 09/16/15 Last Updated by: Jacqueline Salazar M.D. breech Delivery Date: 10/21/19 Last Updated by: Jacqueline Salazar M.D. retained placenta, transferred to [facility] - H&P: Exam Physical Exam Vital signs: Pulse BP 79 110/64 10/16/21 07:39 10/16/21 07:39 Constitutional Constitutional: no acute distress and cooperative Detailed Labor and Delivery Exam Patient Gravid: yes Tachysystole: No Comments: Fetus is in a complete breech presentation, confirmed by limited OB ultrasound at the bedside using a transabdominal transducer. Placenta noted to be posterior in to the maternal right. Amniotic fluid volume is grossly normal. head is in the maternal left upper quadrant. Fetus (Single) Monitor Accelerations: Present Monitor Decelerations: None Assessment and Plan Assessment and plan (1) Breech presentation: Status: Acute Plan Informed consent was obtained for external cephalic version. See procedure note.
--- NOTE | 2021-10-16 08:53 | W.PM.GYNPROC ---
Procedure Note Time Seen by Provider: 08:53 Date Seen: 10/16/21 Procedure Details: PREOPERATIVE DIAGNOSIS: 1. Intrauterine at 37 1/7 weeks gestation. 2. Complete breech presentation. POSTOPERATIVE DIAGNOSIS: 1. Intrauterine at 37 1/7 weeks gestation. 2. Vertex presentation. PROCEDURE: 1. Nonstress test. 2. Limited OB ultrasound. 3. External cephalic version. SURGEON: Martin. POLISHING MACHINE TENDER: Abril. ANESTHESIA: None. COMPLICATIONS: None. FINDINGS: Nonstress test: heart rate baseline 138 beats per minute, good variability, 15 x 15 accelerations present, no decelerations, category 1. Limited OB ultrasound: Single, living, intrauterine gestation in a complete presentation with the back along the maternal right, head in the left upper quadrant, grossly normal amniotic fluid volume, placenta posterior in to the maternal right. PROCEDURE NOTE: A nonstress test was performed, which was reactive and reassuring. A limited OB ultrasound was performed at the bedside to determine position. Findings noted above. Informed consent was obtained for external cephalic version. Terbutaline 0.25 mg was administered to the patient subcutaneously. External cephalic version was attempted. Bharat applied upward pressure to the breech, Ruby Samuels applied pressure to the vertex, and we attempted to gently coax the fetus in a forward roll in a clockwise direction. A total of 2 attempts were made, and the end result was successful. heart tones were noted to be normal between and after the attempts. The patient tolerated the procedure well. monitoring for 1 hour after the procedure was continued to be reassuring.
[2021-10-16 09:27] VITALS: BP 123/72; PULSE 92
--- NOTE | 2021-10-16 19:27 | PC.OBNST ---
NST Note NST Note Start: 10/16/21 08:07 Freq: ONCE Status: Active Protocol: Document 10/16/21 09:45 EFFIE (Rec: 10/16/21 19:27 JRTanesha [id number]) NST Note 5 Para (# of births) 2 EDC 11/05/21 Patient Presented with Complaint(s) of Other Other Complaints Here ECV Reactive Yes Appropriate for Gestational Age Yes RN Alta Soliz RN Date 10/16/21 Reactive Yes Appropriate for Gestational Age Yes YOLI Patel RN Date 10/16/21 OB NST charge Yes Complete NST Note via Write Note Yes The provider's electronic signature indicates the NST is reactive/appropriate for gestational age. *Note to provider: If an addendum is required, open the patient's chart and click on the note under the Nurse/Allied Health tab.
== END 2021-10-16 09:55 | disposition home or self-care (01) ==
LOC: OB CLI 07:24 → OB 07:27
PROVIDERS: PCP Family Medicine; Visit Provider Obstetrics & Gynecology
DX: O32.1XX0 Maternal care for breech presentation, not applicable or unspecified (principal); Z3A.37 37 weeks gestation of pregnancy
CPT/HCPCS: 59025; 59412; 76815; 99211; J3105

== ENCOUNTER 2021-10-17 16:42 | Outpatient (CLI) | payer BC, SELFPAY ==
--- OUTSIDE RECORDS SUMMARY | 2021-10-17 16:45 | XMS_ITS | Clinical Summary ---
:1985 Author Organization [place] Address [facility] [address] Care Team Providers Name Role Phone Unavailable [...] but HPV effect 08/16/2010 Pap: HPV+ 09/24/2010 [place]: Negative 09/30/2011 [place]: No dysplasia but HPV effe ct 08/20/2012 [...] Group Dates BCBS BCBS OUT OF STATE [id number] 2020-Pre [phone] Indemnity sent [phone] [place] [address] [facility] CIGNA [id number] 2001-Pre [phone] [employer] sent [phone] [place] URIOSTEGUI [id number] COMMERCIAL GENERIC [id number] 2007-Pr [phone] Indemnity [place]CIAL [id number] Galina Dangelo Personal/Famil Self 1985 [address] (Home) [place] [phone]
--- OUTSIDE RECORDS SUMMARY | 2021-10-17 16:45 | XMS_ITS | Encounter Summary ---
:1985 Author Organization [place] Address [address] [facility] [place] [address] Care Team Providers Name Role Phone Melba Bell DO Unavailable [phone] Encounter Details Date Type Department Care [...] on filedocumented in this encounter Care Teams Mrp Controller Relationship Specialty Start Date End Date Melba Bell DO Assigned OBGYN Provider 06/02/21 09/20/[address] [place], [place] [address] documented as of this encounter
--- OUTSIDE RECORDS SUMMARY | 2021-10-17 16:45 | XMS_ITS | Encounter Summary ---
:1985 Author Organization [place] Address [address] [facility] [place] [address] Care Team Providers Name Role Phone Melba Bell DO Unavailable Reason for Referral Diagnostic Imaging Ultrasound (Routine) - Pending Review Specialty Diagnoses / Procedures Referred By Contact Refer red To Contact Diagnoses Hx of delivery, currently , second trimester Melba Bell, Procedures [facility] Comprehensive Single DO [address] [place], [place] [address] Referral ID Status Reason Start Date Expiration Date Visits V isits Requested Authorized [id number] Pending 05/24/2021 05/24/2022 1 1 Review Reason for Visit Diagnostic Imaging Ultrasound (Routine) - Pending Review Specialty Diagnoses / Procedures Referred By Contact Refer red To Contact Diagnoses Hx of delivery, currently , second trimester Melba Bell, Procedures [facility] Comprehensive Single DO [address] [place], [place] [address] Referral ID Status Reason Start Date Expiration Date Visits V isits Requested Authorized [id number] Pending 05/24/2021 05/24/2022 1 1 Review Encounter Details Date Type Department Care Team Description 06/21/2021 [facility] Hx of Maternal DO [facility] delivery, [facility] [address] pregna nt, [facility] 400 trimester [address] [place], [place] [address] [address] [place], [place] [phone] [address] (Work) [phone] Social History Tobacco Use Types Packs/Day Years [...] Procedure Name Priority Date/Time Associated Comments Diagnosis [facility] US COMPREHENSIVE Routine 06/21/2021 11:04 Hx of Re sults for this SINGLE AM CDT delivery, currently procedur e are in , second the results trimester section. documented in this encounter Results [facility] US Comprehensive Single (06/21/2021 11:04 AM [...] ILIANA RAMIREZ Study Date: 8:50am Pat. NO: [id number] Referring ??MD: PRINCE SHERIFF Site: [facility] Plastics Tooling Engineer: Marjan Lane RD MS : 1985 Age: [...] lb 12 ? oz EFW by ?Hadlock ([id number]) Head / Face / Neck Biometry: Finished Goods Planner ? 5.9 ? mm CM ?6.1 ? [...] cava. Inferior vena cava. 3-vessel ? view. 7-vhjlae-gyhyrtn view. Cardiac position. Cardiac size. Cardiac rhythm. [...] Note Melba Bell, DO - 06/21/2021 Comprehensive Pat. Name:MARK RAMIREZILStsebastián Date:06/21 8:50am Pat. NO: [id number] MD:JUSTIN SHERIFF Site:[facility]ographer:Marjan Lane RDMS :1985Age:36 INDICATION [...] 0 lb 12 oz EFW by Hadlock ([id number]-FL) Head / Face / Neck Biometry: Finished Goods Planner 5.9 mm CM 6.1 mm Nasal bone [...] vena cava. Inferior vena cava. 3-vessel view. 2-dmcmmo-fobjbwv view. Cardiac po sition. Cardiac size. Cardiac [...] trimester documented in this encounter Care Teams Parole Officer Relationship Specialty Start Date End Date Melba Bell DO Assigned OBGYN Provider 06/02/21 09/20/[address] [facility] [address] [place] [address] documented as of this encounter
--- OUTSIDE RECORDS SUMMARY | 2021-10-17 16:45 | XMS_ITS | Encounter Summary ---
:1985 Author Organization [place] Address [address] [place] [address] Care Team Providers Name Role Phone Unavailable [...]
--- OUTSIDE RECORDS SUMMARY | 2021-10-17 16:45 | XMS_ITS | Encounter Summary ---
:1985 Author Organization [place] Address [address] [facility] [place] [address] Care Team Providers Name Role Phone Unavailable Primary Care Provider Unavailable Reason for Referral Diagnostic Imaging Ultrasound (Routine) - Pending Review Specialty Diagnoses / Procedures Referred By Contact Refer red To Contact Diagnoses Hx of delivery, currently , second trimester Terry Benítez MD Procedures MF US OB Complete 2/3 Tri Single [address] [place], [place] [address] Referral ID Status Reason Start Date Expiration Date Visits V isits Requested Authorized [id number] Pending 05/03/2021 05/03/2022 1 1 Review Reason for Visit Diagnostic Imaging Ultrasound (Routine) - Pending Review Specialty Diagnoses / Procedures Referred By Contact Refer red To Contact Diagnoses Hx of delivery, currently , second trimester Terry Benítez MD Procedures MF US OB Complete 2/3 Tri Single [address] [place], [place] [address] Referral ID Status Reason Start Date Expiration Date Visits V isits Requested Authorized [id number] Pending 05/03/2021 05/03/2022 1 1 Review Encounter Details Date Type Department Care Team Description 05/24/2021 Hospital Encounter [facility] Santiago Benítez MD [address] [place] [address] Hx of Maternal Melba Bell, DO [address] [place] [address] delivery, currently [facility] , se cond [place] trimester [address] [place] [address] Social History Tobacco Use Types [...] Name Priority Date/Time Associated Diagnosis Comme nts [facility] US OB COMPLETE Routine 05/24/2021 9:07 AM Hx of Re sults for this 2/3 TRI SINGLE CDT delivery, currently proced ure are in , second the results trimester section. documented in this encounter Results [facility] US OB Complete 2/3 Tri Single [...] ILIANA RAMIREZ Study Date: 8:04am Pat. NO: [id number] Referring ??MD: PRINCE SALAZAR Site: [facility] Fixer Supervisor: Fernando Matthews RDMS : 1985 Age: 36 [...] 0 lb 5 ?oz EFW by ?Hadlock ([id number]) Head / Face / Neck Biometry: Driller Portable ? 5.4 ? mm CM ?2.9 ? [...] cava. Inferior vena cava. 3-vessel ? view. 3-ytplaf-ibnaerc view. Cardiac position. Cardiac size. Cardiac rhythm. 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 The current conclusion of [facility] is that it is reasonable to offer 17-OHP to women with a profile mor e outbound telemarketing representative of the very high risk patient, but that all women at risk of recurrent should have a discussion of the risks/benefits and undergo a shared deci alex-making process. After the publication of the Lela ( PROLONG) study an FDA Advisory Committee recommended withdrawing Mercedes (17 - OHP) off the market. The FDA decision is still pending. [facility] did not change their position. ACOG supports [...] invasive route and will likely go to [place] on Thursday to have cell free DNA drawn. She can contact our office early next week if Dr. Salazar' office ca nnot get her in for it. We discussed what the results might mean if low risk/high risk, but can provide further information if needed. Recommendations: - Cell free DNA screening to be performe d through [place]. - Baseline transvaginal cervical length at 16 weeks' gestation with measurements every 2 weeks through 23 weeks. - [facility] to perform the TVUS for CL at 18 and 22 weeks. - [facility] will perform a comprehensive US at [...] A repeat ultrasound has been scheduled h [facility] in 4 weeks for a comprehensive US. Return to primary provider for continued care. Thank you for the opportunity to partici dio in the care of this patient. If you have questions regarding today's evaluation or if we can be of further service, please contact the [facility]. anomalies may be present but not detected Procedure Note Melab Bell DO - 05/24/2021 2nd / 3rd Trim Pat. Name:Ling RAMIREZ Date:05/24 8:04am Pat. NO: [id number] MD:JUSTIN SALAZAR [facility]:Fernando Matthews RDMS :1985Age:36 INDICATION Survey METHOD Transabdominal [...] 0 lb 5 oz EFW by Hadlock ([id number]-FL) Head / Face / Neck Biometry: Driller Portable 5.4 mm CM 2.9 mm Nasal bone [...] vena cava. Inferior vena cava. 3-vessel view. 0-emvydu-qxjdddq view. Cardiac po sition. Cardiac size. 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 The current conclusion of [facility] is that it is reasonable to offer 17-OHP to women with a profile mor e outbound telemarketing representative of the very high risk patient, but that all women at risk of recurrent should have a discussion of the risks/benefits and undergo a shared deci alex-making process. After the publication of the Vogel ( PROLONG) study an FDA Advisory Committee recommended withdrawing Shayla (17 - OHP) off the market. The FDA decision is still pending. [facility] did not change their position. ACOG supports [...] invasive route and will likely go to [place] on Thursday to have cell free DNA drawn. She can contact our office early next week if Dr. Salazar' office ca nnot get her in for it. We discussed what the results might mean if low risk/high risk, but can provide further information if needed. Recommendations: - Cell free DNA screening to be performe d through [facility]. - Baseline transvaginal cervical length at 16 weeks' gestation with measurements every 2 weeks through 23 weeks. - [facility] to perform the TVUS for CL at 18 and 22 weeks. - [facility] will perform a comprehensive US at [...] length is r eassuring. Terry Benítez MD [facility] documented in this encounter Visit Diagnoses Diagnosis Hx of delivery, currently pregna nt, second trimester documented in this encounter
--- OUTSIDE RECORDS SUMMARY | 2021-10-17 16:45 | XMS_ITS | Encounter Summary ---
:1985 Author Organization [place] Address [address] [facility] [place] [address] Care Team Providers Name Role Phone Melba Bell DO Unavailable [phone] Reason for Visit Reason Comments Ultrasound L2/TV- history of PTL/PTD an d covid in 1st trimester Encounter Details Date Type Department Care Team Description 06/21/2021 Office Visit [facility] Melba Bell Hx of Maternal DO [place] delivery, [facility] [address] pregna nt, second [place] 400 trimester (Primary [address] [place], [place] Dx) [address] [address] [place], [place] [phone] (Wo rk) [address] [phone] Social History Tobacco Use Types Packs/Day Years [...] Primary documented in this encounter Care Teams Family Worker Relationship Specialty Start Date End Date Melba Bell DO Assigned OBGYN Provider 06/02/21 09/20/21 [address] [facility] [address] [place], [place] [id number] documented as of this encounter
--- OUTSIDE RECORDS SUMMARY | 2021-10-17 16:46 | XMS_ITS | Encounter Summary ---
:1985 Author Organization [place] Address [address] [place] [address] Care Team Providers Name Role Phone Unavailable Primary Care Provider Unavailable Reason for Visit [facility] (Routine) - Closed Specialty Diagnoses / Procedures Referred By Contact Refer red To Contact Ziggy Brown FOR ATHLETIC ORTHOPAEDIC FRACTURE [facility] MED [address] [place] [phone] Fax: Referral ID Status Reason Start Date Expiration Date Visits V isits Requested Authorized HPCIGNA - KNEE Closed 07/08/2007 02/23/2008 90 88 Encounter Details Date Type Department Care Team Description 08/04/2007 [facility] Mckeon ACL (Anterior Cruciate Ligament) Tear; [facility] Other Postp rocedural Status [facility] [address] [facility] [place], [place] [address] Social History Tobacco Use Types Packs/Day Years [...] Procedure Name Priority Date/Time Associated Diagnosis Comme [facility] THERAPEUTIC Routine 08/04/2007 5:12 PM ACL (Anterior Cruci ate ACTIVITIES CDT Ligament) Tear Other Postprocedural Status [facility] NEUROMUSCULAR Routine 08/04/2007 5:12 PM ACL (Anterior Cru ciate RE-EDUCATION CDT Ligament) Tear Other Postprocedural Status [facility] THERAPEUTIC Routine 08/04/2007 5:12 PM ACL (Anterior Cruci ate EXERCISES CDT Ligament) Tear Other Postprocedural Status documented in this encounter Visit Diagnoses Diagnosis ACL (anterior cruciate ligament) tear Sprain of cruciate ligament of knee Other postprocedural status(V45.89) Other postprocedural status documented in this encounter
--- OUTSIDE RECORDS SUMMARY | 2021-10-17 16:46 | XMS_ITS | Encounter Summary ---
:1985 Author Organization [place] Address [address] [place] [address] Care Team Providers Name Role Phone Unavailable Primary Care Provider Unavailable Reason for Visit [facility] (Routine) - Closed Specialty Diagnoses / Procedures Referred By Contact Refer red To Contact Ziggy Brown FOR ATHLETIC ORTHOPAEDIC FRACTURE [facility] MED [address] [place] [phone] Fax: Referral ID Status Reason Start Date Expiration Date Visits V isits Requested Authorized HPCIGNA - KNEE Closed 07/08/2007 02/23/2008 90 88 Encounter Details Date Type Department Care Team Description 08/11/2007 [facility] Mckeon ACL (Anterior Cruciate Ligament) Tear; [facility] Other Postp rocedural Status [facility] [address] [facility] [place], [place] [address] Social History Tobacco Use Types [...] ACTIVITIES CDT Ligament) Tear Other Postprocedural Status [facility] NEUROMUSCULAR Routine 08/11/2007 1:02 PM ACL (Anterior Cru ciate RE-EDUCATION CDT Ligament) Tear Other Postprocedural Status [facility] THERAPEUTIC Routine 08/11/2007 1:02 PM ACL (Anterior Cruci ate EXERCISES CDT Ligament) Tear Other Postprocedural Status documented in this encounter Visit Diagnoses Diagnosis ACL (anterior cruciate ligament) tear Sprain of cruciate ligament of knee Other postprocedural status(V45.89) Other postprocedural status documented in this encounter
--- OUTSIDE RECORDS SUMMARY | 2021-10-17 16:46 | XMS_ITS | Encounter Summary ---
:1985 Author Organization [place] Address [address] [facility] [place] [address] Care Team Providers Name Role Phone Unavailable Primary Care Provider Unavailable Reason for Referral Diagnostic Imaging Ultrasound (Routine) - Pending Review Specialty Diagnoses / Procedures Referred By Contact Refer red To Contact Diagnoses Hx of delivery, currently , second trimester Melba Bell, Procedures [facility] US Comprehensive [facility] DO [address] [facility] [address] [place], [place] [address] Referral ID Status Reason Start Date Expiration Date Visits V isits Requested Authorized [id number] Pending 05/24/2021 05/24/2022 1 1 Review Reason for Visit Reason Comments Ultrasound 2/3 complete with TV: hx PTD Consult MF consult Consultation (Routine: Next available opening) - Pending Review Specialty Diagnoses / Procedures Referred By Contact Refer red To Contact Diagnoses related condition Jacqueline Salazar MD [facility] [address] [place] [address] Referral ID Status Reason Start Date Expiration Date Visits V isits Requested Authorized [id number] Pending 05/03/2021 05/03/2022 1 1 Review Encounter Details Date Type Department Care Team Description [facility]/24[facility]2021 [facility] [address], [place] [address] Hx of delivery, currently pregna nt, second trimester (Primary Dx); Maternal Melba Bell DO [address] [place], [place] [phone] related condition in second tr [facility] [address] [place], [place] [address] Social History Tobacco Use Types Packs/Day Years [...] 05/24/2021 8:45 AM CDT Iliana presents to [facility] for 2/3 complete with TV and [...] on filedocumented as of this encounter Results [facility] US Comprehensive Single (06/21/2021 11:04 AM CDT) [...] ILIANA RAMIREZ Study Date: 8:50am Pat. 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 oz EFW by ?Hadlock ([id number]) Head / Face / Neck Biometry: Salicylic Acid Blender ? 5.9 ? mm CM ?6.1 ? [...] cava. Inferior vena cava. 3-vessel ? view. 9-luwuhl-btdphsi view. Cardiac position. Cardiac size. Cardiac rhythm. [...] Comprehensive Name:Ling RAMIREZ Date:06/21 8:50am Pat. NO: [id number] MD:JACQUELINE SALAZAR [place]Marjan Lane RDMS :1985Age:36 INDICATION History of delivery. NIPT negati ve METHOD Transabdominal and transvaginal ultrasou nd approaches were used. (Transvaginal ultrasound examination was required to adequately complete the exam.). View: Sufficient [place] . Number of fetuses: 1 DATING Date Details Gest. age ZAHRIA LMP 01/29/2021 20 w + 3 d [...] 0 lb 12 oz EFW by Hadlock ([id number]) Head / Face / Neck Biometry: Salicylic Acid Blender 5.9 mm CM 6.1 mm Nasal bone [...] vena cava. Inferior vena cava. 3-vessel view. 7-cdygtk-jhzezdo view. Cardiac po sition. Cardiac size. Cardiac [...] is r eassuring. Melba Bell DO IMG [facility] US ORDERABLES documented in this encounter Visit Diagnoses Diagnosis Hx of delivery, currently pregna nt, second trimester - Primary related condition in second tr imester Unspecified complication of , a ntepartum Hx of delivery, currently pregna nt, second trimester documented in this encounter
--- OUTSIDE RECORDS SUMMARY | 2021-10-17 16:46 | XMS_ITS | Encounter Summary ---
:1985 Author Organization [place] Address [address] [place] [address] Care Team Providers Name Role Phone Unavailable Primary Care Provider Unavailable Reason for Visit [facility] (Routine) - Closed Specialty Diagnoses / Procedures Referred By Contact Refer red To Contact Ziggy Brown FOR ATHLETIC ORTHOPAEDIC FRACTURE [facility] MED [address] [facility] [place] [phone] Fax: Referral ID Status Reason Start Date Expiration Date Visits V isits Requested Authorized HPCIGNA - KNEE Closed 07/08/2007 02/23/2008 90 88 Encounter Details Date Type Department Care Team Description 08/18/2007 [facility] Kent i, PT ACL (Anterior Cruciate Ligament) Tear; [facility] [address] [address] Other Po stprocedural Status [facility] [place] [address] [address] [address] [place], [place] [address] (Work) [phone] Social History Tobacco Use Types Packs/Day Years [...] Name Priority Date/Time Associated Diagnosis Comme nts [facility] NEUROMUSCULAR Routine 08/18/2007 3:54 PM ACL (Anterior Cru ciate RE-EDUCATION CDT Ligament) Tear Other Postprocedural Status [facility] THERAPEUTIC Routine 08/18/2007 3:54 PM ACL (Anterior Cruci ate EXERCISES CDT Ligament) Tear Other Postprocedural Status documented in this encounter Visit Diagnoses Diagnosis ACL (anterior cruciate ligament) tear Sprain of cruciate ligament of knee Other postprocedural status(V45.89) Other postprocedural status documented in this encounter
--- OUTSIDE RECORDS SUMMARY | 2021-10-17 16:46 | XMS_ITS | Encounter Summary ---
:1985 Author Organization [place] Address [address] [place] [address] Care Team Providers Name Role Phone Unavailable Primary Care Provider Unavailable Reason for Visit [facility] (Routine) - Closed Specialty Diagnoses / Procedures Referred By Contact Refer red To Contact Ziggy Brown FOR ATHLETIC ORTHOPAEDIC FRACTURE [facility] MED [address] [place] [phone] Fax: Referral ID Status Reason Start Date Expiration Date Visits V isits Requested Authorized HPCIGNA - KNEE Closed 07/08/2007 02/23/2008 90 88 Encounter Details Date Type Department Care Team Description 07/21/2007 [facility] Mckeon ACL (Anterior Cruciate Ligament) Tear; [facility] Other Postp rocedural Status [facility] [address] [facility] [place], [place] [address] Social History Tobacco Use Types Packs/Day Years [...] ACTIVITIES CDT Ligament) Tear Other Postprocedural Status [facility] NEUROMUSCULAR Routine 07/21/2007 5:43 PM ACL (Anterior Cru ciate RE-EDUCATION CDT Ligament) Tear Other Postprocedural Status [facility] THERAPEUTIC Routine 07/21/2007 5:43 PM ACL (Anterior Cruci ate EXERCISES CDT Ligament) Tear Other Postprocedural Status documented in this encounter Visit Diagnoses Diagnosis ACL (anterior cruciate ligament) tear Sprain of cruciate ligament of knee Other postprocedural status(V45.89) Other postprocedural status documented in this encounter
--- OUTSIDE RECORDS SUMMARY | 2021-10-17 16:46 | XMS_ITS | Encounter Summary ---
:1985 Author Organization [place] Address [address] [facility] 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 NO: [id number] Referring ??: PRINCE SALAZAR Site: [facility] Mathematics Education Professor: Fernando Matthews RDMS : 1985 Age: 36 [...] 0 lb 5 ?oz EFW by ?Hadlock ([id number]) Head / Face / Neck Biometry: Education Research Analyst ? 5.4 ? mm CM ?2.9 [...] cava. Inferior vena cava. 3-vessel ? view. 6-fbkmfx-azouaid view. Cardiac position. Cardiac size. Cardiac rhythm. [...] Ovary ?Visualized Left Ovary ?Visualized CONSULTATION Type: [facility] CONSULTATION Dear Dr. 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 The current conclusion of [facility] is that it is reasonable to offer 17-OHP to women with a profile mor e senior patient account representative of the very high risk patient, but that all women at risk of recurrent should have a discussion of the risks/benefits and undergo a shared deci alex-making process. After the publication of the [place] ( PROLONG) study an FDA Advisory Committee recommended withdrawing Shayla (17 - OHP) off the market. The FDA decision is still pending. [facility] did not change their position. ACOG [...] invasive route and will likely go to [place] on Thursday to have cell free DNA drawn. She can contact our office early next week if Dr. Salazar' office ca nnot get her in for it. We discussed what the results might mean if low risk/high risk, but can provide further information if needed. Recommendations: - Cell free DNA screening to be performe d through [place]. - Baseline transvaginal cervical length at 16 weeks' gestation with measurements every 2 weeks through 23 weeks. - [place] to perform the TVUS for CL at 18 and 22 weeks. - [facility] will perform a comprehensive US at 20 [...] RECOMMENDATION We discussed the findings on [facility]'s [facility] with the patient. See consultation above for [...] Trim Name:Ling RAMIREZ Date:05/24 8:04am Pat. NO: [id number] MD:JUSTIN SALAZAR [facility]Fernando Matthews RDMS :1985Age:36 INDICATION [...] 0 lb 5 oz EFW by Hadlock ([id number]-FL) Head / Face / Neck Biometry: Education Research Analyst 5.4 mm CM 2.9 mm Nasal [...] vena cava. Inferior vena cava. 3-vessel view. 3-grxclj-jwefoxh view. Cardiac po sition. Cardiac size. Cardiac [...] Ovary Visualized Left Ovary Visualized CONSULTATION Type: [facility] CONSULTATION Dear Dr. 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 The current conclusion of [facility] is that it is reasonable to offer 17-OHP to women with a profile mor e senior patient account representative of the very high risk patient, but that all women at risk of recurrent should have a discussion of the risks/benefits and undergo a shared deci alex-making process. After the publication of the [place] ( PROLONG) study an FDA Advisory Committee recommended withdrawing [place] (17 - OHP) off the market. The FDA decision is still pending. [facility] did not change their position. ACOG [...] invasive route and will likely go to [place] on Thursday to have cell free DNA drawn. She can contact our office early next week if Dr. Salazar' office ca sol get her in for it. We discussed what the results might mean if low risk/high risk, but can provide further information if needed. Recommendations: - Cell free DNA screening to be performe d through [place]. - Baseline transvaginal cervical length at 16 weeks' gestation with measurements every 2 weeks through 23 weeks. - [place] to perform the TVUS for CL at 18 and 22 weeks. - [facility] will perform a comprehensive US at 20 [...] A repeat ultrasound has been scheduled h [facility] in 4 weeks for a comprehensive US. [...] length is r eassuring. Terry Benítez MD [facility] US ORDERABLES documented in this encounter Visit Diagnoses Diagnosis Hx of delivery, currently pregna nt, second trimester - Primary Hx of delivery, currently pregna nt, second trimester documented in this encounter
--- OUTSIDE RECORDS SUMMARY | 2021-10-17 16:46 | XMS_ITS | Encounter Summary ---
:1985 Author Organization [place] Address [address] [place] [address] Care Team Providers Name Role Phone Unavailable Primary Care Provider Unavailable Reason for Visit [facility] Physical Therapy (Routine) - Closed Specialty Diagnoses / Procedures Referred By Contact Refer red To Contact Ziggy Brown FOR ATHLETIC ORTHOPAEDIC FRACTURE [facility] MED [address] [place] [phone] Fax: Referral ID Status Reason Start Date Expiration Date Visits V isits Requested Authorized HPCIGNA - KNEE Closed 07/08/2007 02/23/2008 90 88 Encounter Details Date Type Department Care Team Description 07/28/2007 [facility]keon ACL (Anterior Cruciate Ligament) Tear; [facility] Other Postp rocedural Status [facility] [address] [facility] [place], [place] [address] Social History Tobacco Use Types Packs/Day Years [...] ACTIVITIES CDT Ligament) Tear Other Postprocedural Status [facility] THERAPEUTIC Routine 07/28/2007 5:37 PM ACL (Anterior Cruci ate EXERCISES CDT Ligament) Tear Other Postprocedural Status documented in this encounter Visit Diagnoses Diagnosis ACL (anterior cruciate ligament) tear Sprain of cruciate ligament of knee Other postprocedural status(V45.89) Other postprocedural status documented in this encounter
--- OUTSIDE RECORDS SUMMARY | 2021-10-17 16:46 | XMS_ITS | Encounter Summary ---
:1985 Author Organization [place] Address [address] [facility] [place] [address] Care Team Providers Name Role Phone Unavailable Primary Care Provider Unavailable Reason for Referral Consultation (Routine: Next available opening) - Pending Review Specialty Diagnoses / Procedures Referred By Contact Refer red To Contact Diagnoses related condition Jacqueline Salazar MD [facility] [address] [place] [address] Referral ID Status Reason Start Date Expiration Date Visits V isits Requested Authorized [id number] Pending 05/03/2021 05/03/2022 1 1 Review ETING ADMIN Encounter Details Date Type Department Care Team Description 05/03/2021 Transcribe Orders [facility] Jacqueline Salazar Pr egnancy related Maternal MD Jude condition (Primary Medicine Center [facility] Dx) [place] [address] [address] [phone] Social History Tobacco Use Types Packs/Day Years [...]
--- OUTSIDE RECORDS SUMMARY | 2021-10-17 16:46 | XMS_ITS | Encounter Summary ---
:1985 Author Organization [place] Address [address] [facility] [place] [address] Care Team Providers Name Role Phone Unavailable Primary Care Provider Unavailable Reason for Visit [facility] (Routine) - Closed Specialty Diagnoses / Procedures Referred By Contact Refer red To Contact Ziggy Brown FOR ATHLETIC ORTHOPAEDIC FRACTURE [facility] [address] [place] [phone] Fax: Referral ID Status Reason Start Date Expiration Date Visits V isits Requested Authorized HPCIGNA - KNEE Closed 07/08/2007 02/23/2008 90 88 Encounter Details Date Type Department Care Team Description 07/08/2007 [facility], ACL ( Anterior Cruciate Ligament) Tear; Medicine - Shaquille Leon, PT Other Postprocedural Status [facility] [address] [place], [place] [address] [address] [place], [place] [address] [phone] Social History Tobacco Use Types Packs/Day Years [...] Name Priority Date/Time Associated Diagnosis Comme nts [facility] THERAPEUTIC Routine 07/08/2007 10:57 AM ACL (Anterior Cruc iate ACTIVITIES CDT Ligament) Tear Other Postprocedural Status [facility] THERAPEUTIC Routine 07/08/2007 10:41 AM ACL (Anterior Cruc iate EXERCISES CDT Ligament) Tear Other Postprocedural Status documented in this encounter Visit Diagnoses Diagnosis ACL (anterior cruciate ligament) tear Sprain of cruciate ligament of knee Other postprocedural status(V45.89) Other postprocedural status documented in this encounter
--- OUTSIDE RECORDS SUMMARY | 2021-10-17 16:46 | XMS_ITS | Encounter Summary ---
:1985 Author Organization [place] Address [address] [place] [address]. [place] [address] Care Team Providers Name Role Phone Unavailable Primary Care Provider Unavailable Encounter Details Date Type Department Care Team Description 04/24/2021 Medical Correspondence [facility] Scan, MATERNAL Health Info Mgmt Non-Provider MEDICINE CE NTER [facility] PROVIDER SERVICE [address] [place] [address] REQUEST [place]PAT[place] [address] [facility] [phone] [facility] Social History Tobacco Use Types Packs/Day Years Used Date Never Assessed Sex Assigned at Date Recorded Not on file documented as of this encounter Plan of Treatment Not on filedocumented as of this encounter Visit Diagnoses Not on filedocumented in this encounter
--- OUTSIDE RECORDS SUMMARY | 2021-10-17 16:46 | XMS_ITS | Encounter Summary ---
:1985 Author Organization [place] Address [address] [place] [address] Care Team Providers Name Role Phone Unavailable Primary Care Provider Unavailable Reason for Referral Consultation (Routine) - Pending Review Specialty Diagnoses / Procedures Referred By Contact Refer red To Contact Diagnoses related condition, antepartum Jacqueline Salazar MD [facility] [address] [place] [address] Referral ID Status Reason Start Date Expiration Date Visits V isits Requested Authorized [id number] Pending 05/03/2021 05/03/2022 1 1 Review STRINGER Encounter Details Date Type Department Care Team Description 05/03/[address] [facility] Jacqueline Salazar Pr egnancy related Maternal MD Jude condition, Medicine Center [facility] antepartum ( Primary [place] [facility] Dx) [address] [facility] [address] [place] [phone] Social History Tobacco Use Types Packs/Day Years [...]
--- OUTSIDE RECORDS SUMMARY | 2021-10-17 16:46 | XMS_ITS | Encounter Summary ---
:1985 Author Organization [place] Address [address] [facility] [place] [address] Care Team Providers Name Role Phone Unavailable Primary Care Provider Unavailable Reason for Visit Reason Comments Ultrasound 2/3+TV- hx PTL/PTD, 1st tri Covid Consult MFM- hx PTL/PTD, 1st tri Cov id Encounter Details Date Type Department Care Team Description 05/17/2021 PRE VISIT [facility] Maricruz Andrade nd (2/3+TV- hx Maternal Jonelle Raz RN PTL/PTD, 1st [facility] Covid); Cons ult ([facility] hx PTL/PTD, 1st tri [address] Covid) [place], [place] [address] Social History Tobacco Use Types Packs/Day Years Used Date Never Assessed Sex Assigned at Date Recorded Not on file documented as of this encounter Plan of Treatment Not on filedocumented as of this encounter Visit Diagnoses Not on filedocumented in this encounter
[2021-10-17 16:58] VITALS: PULSE 78; O2SAT 98
[2021-10-17 17:01] VITALS: BP 109/66; PULSE 82
[2021-10-17 17:03] VITALS: RESP 16; TEMP 36.8; O2SAT 98
--- NOTE | 2021-10-17 18:38 | PC.OBNST ---
NST Note NST Note Start: 10/17/21 16:54 Freq: ONCE Status: Active Protocol: Document 10/17/21 18:11 WK (Rec: 10/17/21 18:38 WK [id number]) NST Note 5 Para (# of births) 2 EDC 11/05/21 Patient Presented with Complaint(s) of Decreased movement Reactive Yes Appropriate for Gestational Age Yes RN Qiana RNC Date 10/17/21 Reactive Yes Appropriate for Gestational Age Yes RN Mary RNC Date 10/17/21 OB NST charge Yes Complete NST Note via Write Note Yes The provider's electronic signature indicates the NST is reactive/appropriate for gestational age. *Note to provider: If an addendum is required, open the patient's chart and click on the note under the Nurse/Allied Health tab.
== END 2021-10-17 18:35 | disposition home or self-care (01) ==
LOC: OB OUT 16:45 → OB 16:46
PROVIDERS: PCP Family Medicine; Visit Provider Advanced Practice Midwife
DX: O36.8130 Decreased fetal movements, third trimester, not applicable or unspecified (principal); Z3A.37 37 weeks gestation of pregnancy
CPT/HCPCS: 59025; 99213

== ENCOUNTER 2021-10-27 02:52 | Inpatient (IN) | payer BC, SELFPAY ==
[2021-10-27] VITALS (92 sets, daily range): BP systolic 86–217; BP diastolic 50–79; PULSE 60–111; RESP 14–18; TEMP 36.4–37.1; O2SAT 96–100; BMI 31.3
--- OUTSIDE RECORDS SUMMARY | 2021-10-27 02:36 | XMS_ITS | Encounter Summary ---
:1985 Author Organization [place] Address [address] [place] [address] Care Team Providers Name Role Phone Unavailable Primary Care Provider Unavailable Reason for Visit [facility] (Routine) - Closed Specialty Diagnoses / Procedures Referred By Contact Refer red To Contact Ziggy Brown FOR ATHLETIC ORTHOPAEDIC FRACTURE [facility] [address] [place] [phone] Fax: Referral ID Status Reason Start Date Expiration Date Visits V isits Requested Authorized HPCIGNA - KNEE Closed 07/08/2007 02/23/2008 90 88 Encounter Details Date Type Department Care Team Description 07/21/2007 [facility] Mckeon ACL (Anterior Cruciate Ligament) Tear; [facility] Other Postp rocedural Status [facility] [address] [facility] [place], [place] [address] Social History Tobacco Use Types Packs/Day Years [...] ACTIVITIES CDT Ligament) Tear Other Postprocedural Status [facility] NEUROMUSCULAR Routine 07/21/2007 5:43 PM ACL (Anterior Cru ciate RE-EDUCATION CDT Ligament) Tear Other Postprocedural Status [facility] THERAPEUTIC Routine 07/21/2007 5:43 PM ACL (Anterior Cruci ate EXERCISES CDT Ligament) Tear Other Postprocedural Status documented in this encounter Visit Diagnoses Diagnosis ACL (anterior cruciate ligament) tear Sprain of cruciate ligament of knee Other postprocedural status(V45.89) Other postprocedural status documented in this encounter
--- OUTSIDE RECORDS SUMMARY | 2021-10-27 02:36 | XMS_ITS | Encounter Summary ---
:1985 Author Organization [place] Address [address] [facility] [place] [address] Care Team Providers Name Role Phone Unavailable Primary Care Provider Unavailable Reason for Referral Diagnostic Imaging Ultrasound (Routine) - Pending Review Specialty Diagnoses / Procedures Referred By Contact Refer red To Contact Diagnoses Hx of delivery, currently , second trimester Terry Benítez MD Procedures MF US OB Complete 2/[address] [place], [place] [address] Referral ID Status Reason Start Date Expiration Date Visits V isits Requested Authorized [id number] Pending 05/03/2021 05/03/2022 1 1 Review Reason for Visit Diagnostic Imaging Ultrasound (Routine) - Pending Review Specialty Diagnoses / Procedures Referred By Contact Refer red To Contact Diagnoses Hx of delivery, currently , second trimester Terry Benítez MD Procedures MF US OB Complete 2/3 Tri Single [address] [place], [place] [address] Referral ID Status Reason Start Date Expiration Date Visits V isits Requested Authorized [id number] Pending 05/03/2021 05/03/2022 1 1 Review Encounter Details Date Type Department Care Team Description 05/24/2021 Hospital Encounter [facility] Santiago Benítez MD [address] [place] [address] Hx of Maternal Melba Bell, DO [address] [place] [address] delivery, currently Medicine Center , se cond [place] trimester [address] [place] [address] Social History Tobacco Use Types [...] ILIANA RAMIREZ Study Date: 8:04am Pat. NO: [id number] Referring ??MD: PRINCE SALAZAR Site: [facility] Residential Remodeling Subcontractor: Fernando Matthews RDMS : 1985 Age: 36 [...] 0 lb 5 ?oz EFW by ?Hadlock ([id number]) Head / Face / Neck Biometry: Media Production Support Manager ? 5.4 ? mm CM ?2.9 ? [...] cava. Inferior vena cava. 3-vessel ? view. 1-pexnci-jpmvufu view. Cardiac position. Cardiac size. Cardiac rhythm. 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 The current conclusion of [facility] is that it is reasonable to offer 17-OHP to women with a profile mor e strategic partnership representative of the very high risk patient, but that all women at risk of recurrent should have a discussion of the risks/benefits and undergo a shared deci alex-making process. After the publication of the Lela ( PROLONG) study an FDA Advisory Committee recommended withdrawing Thurmond (17 - OHP) off the market. The FDA decision is still pending. [facility] did not change their position. ACOG supports [...] invasive route and will likely go to [facility] on Thursday to have cell free DNA drawn. She can contact our office early next week if Dr. Salazar' office ca nnot get her in for it. We discussed what the results might mean if low risk/high risk, but can provide further information if needed. Recommendations: - Cell free DNA screening to be performe d through [facility]. - Baseline transvaginal cervical length at 16 weeks' gestation with measurements every 2 weeks through 23 weeks. - [facility] to perform the TVUS for CL at [...] A repeat ultrasound has been scheduled h [facility] in 4 weeks for a comprehensive US. [...] Pat. Name:Ling RAMIREZ Date:05/24 8:04am Pat. NO: [id number] MD:JUSTIN SALAZAR [facility]:Fernando Matthews RDMS :1985Age:36 INDICATION Survey [...] 0 lb 5 oz EFW by Hadlock ([id number]) Head / Face / Neck Biometry: Media Production Support Manager 5.4 mm CM 2.9 mm Nasal bone [...] vena cava. Inferior vena cava. 3-vessel view. 9-zetyyf-bsmpeey view. Cardiac po sition. Cardiac size. 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 The current conclusion of [facility] is that it is reasonable to offer 17-OHP to women with a profile mor e strategic partnership representative of the very high risk patient, but that all women at risk of recurrent should have a discussion of the risks/benefits and undergo a shared deci alex-making process. After the publication of the Vogel ( PROLONG) study an FDA Advisory Committee recommended withdrawing Shayla (17 - OHP) off the market. The FDA decision is still pending. [facility] did not change their position. ACOG supports [...] invasive route and will likely go to [facility] on Thursday to have cell free DNA drawn. She can contact our office early next week if Dr. Salazar' office ca nnot get her in for it. We discussed what the results might mean if low risk/high risk, but can provide further information if needed. Recommendations: - Cell free DNA screening to be performe d through [facility]. - Baseline transvaginal cervical length at 16 weeks' gestation with measurements every 2 weeks through 23 weeks. - [facility] to perform the TVUS for CL at [...] length is r eassuring. Terry Benítez MD [facility] US ORDERABLES documented in this encounter Visit Diagnoses Diagnosis Hx of delivery, currently pregna nt, second trimester documented in this encounter
--- OUTSIDE RECORDS SUMMARY | 2021-10-27 02:36 | XMS_ITS | Clinical Summary ---
:1985 Author Organization [facility] [employer] [facility] [place] [address] Care Team Providers Name Role Phone Casandra Jordan Primary Care Provider Allergies Active Allergy Reactions Severity Noted Date Comments Dust Mites *Unknown 02/18/2014 Unlisted Allergen (Include Detail In *Unknown 01/24 Ragweed and pollen Comments) Medications Medication Sig Dispensed Refills Start Date End Date Status vit 28/iron Take 1 tablet by 100 tablet 0 10/22/2019 Active fum/folic mouth once daily. (MULTIVITAMIN FOLIC ACID 1 MG)Indications: , delivered Active Problems Problem Noted Date Obstetrical laceration, second degree 10/21/2019 History of section 07/05/2018 Encounter for supervision of other normal , f irst trimester 11/18/2017 Overview: Formatting of this note is dif ferent from the original. Estimated Date of Delivery: 01/20/19 Patient's last menstrual period was 03/27 (exact date). Last Tdap- 07/01/2015 Last Flu vaccine- 11/20/2016 Glucose (GTT) result- too early Allergies Allergen Reactions ? ? Dust Mites *Unknown ? ? Other [Unlisted Allergen (Include Detail In Comments)] *Unknown Ragweed and pollen OB History Para Term AB Living 3 1 1 0 1 1 SAB TAB Ectopic Multiple Live Births 1 0 0 0 1 # Outcome Date GA Lbr Shaq/2nd Weight Sex Delivery Anes PTL Lv 3 Current 2 SAB 12/22/17 1 Term 09/16/15 38w0d F HEIDI Comments: presented in labor at 3 8wks and found to have breech presentation Complications: Breech Name: July lab flowsheet for OB labs- Component Latest Ref Rng & Units 06/22/2018 019 06/22/2018 8:29 AM 8:29 AM 8:29 AM ANTIBODY SCREEN Negative Negative SPECIMEN EXPIRATION DATE/TIME 06/25/18 23:59 HEMOGLOBIN 12.0 - 16.0 g/dL 12.6 MCV 80 - 100 fL 85 RUBELLA IGG ANTIBODY Positive 2.24 HEMOGLOBIN A1C SCREENING <=6.4 % 4.8 ABORH O Rh Positive HBSAG Nonreactive Nonreactive HEPATITIS C ANTIBODY Non-Reactive Non-Reactive HIV-1/HIV-2 ANTIBODY Non-Reactive Non-Reactive TREPONEMA PALLIDUM Negative Negative Past Medical History: Diagnosis Date ? ? ACL tear ? ? ASCUS of cervix with negative high risk HPV 10/2016 Plan: Pap/HPV 01/2021 ? ? ASCUS with positive high risk HPV cervical 09/18/200908/2009 ? ? Cervical high risk HPV (human papillomavirus) test positive 08/16/2010 08/16/2010 ? ? Encounter for supervision of other normal , first trimester 11/18/2017 ? ? Fractured elbow 09/22/13 right ? ? Heterotopic ossification right elbow Past Surgical History: Procedure Laterality Date ? ? ACL RECONSTRUCTION Right 2007 ? ? SECTION, CLASSIC 08/2015 ? ? COLPOSCOPY 09/30/2011 HPV effect ? ? COLPOSCOPY 09/24/2010 Negative Bx ? ? COLPOSCOPY 09/2009 HPV effect ? ? hx right elbow removal heterotopic ossification and removal of hardware Right 02/21/[address] Chong ? ? RIGHT SECOND LOOK TYMPANOMASTOIDECTOMY WITH PORP 08/14/2017 ? ? RIGHT TYMPANOMASTOIDECTOMY Right 01/02/2017 Dr Garza ? ? RIGHT TYMPANOMASTOIDECTOMY 12/2016 ? ? TONSIL AND ADENOIDECTOMY 1997 ? ? UPPER ARM/ELBOW SURGERY Right 09/28/2013 s/p right elbow ORIF of capitellum ? ? WISDOM TEETH EXTRACTION 2005 No data on file. Problems (from 06/22/18 to pre sent) No problems associated with this episod richard Ash, RNC.....07/07/2018 11:26 A M Breech presentation 09/04/2015 Overview: Unsuccessful Version 09/04/15, plan c/s care in second trimester 03/29/2015 Overview: Shiva 'Its a surprise!' Initial care elsewhere: prenata l labs HIV, hepatitis, syphilis all negative. Rubella Immune. O+, antibody - ASCUS with positive high risk HPV cervical 03/29/2015 Overview: Colpo 2009, 2010, 09/30/2011 = no dysplasi a but HPV effect. Pap 2011, 08/2013 and 08/2014 normal. Does not look like had HPV testing Above was all at another clinic, some in fo scanned in old records but did not get pathology reports. 09/18/2009 Pap: ASCUS/HPV+ 09/2009 COLP: No dysplasia but HPV effect 08/16/2010 Pap: HPV+ 09/24/2010 [place]: Negative 09/30/2011 [place]: No dysplasia but HPV effe ct 08/20/2012 Pap: NIL/HPV Negative 08/2014 Pap: NIL 11/20/2016 Pap: ASCUS/HPV Negative 01/2018 Pap: NIL/HPV negative Provider plan: repeat Pap/HPV in 3 years posterolateral rotatory instability, right elbow 04/13 s/p right elbow removal heterotopic ossification and r emoval of hardware 03/02/[address] Chong on 02/21/2014 Heterotopic ossification of bone, distal humerus 02/02 Elbow pain, right 02/02/2014 s/p right elbow ORIF of capitellum on 09/28/2013 014 Right elbow capitellar shear fracture dated 09/22/2013 09/27/2013 Cholesteatoma, right Retained placenta or membranes without hemorrhage , delivered Encounters Date Type Specialty Care Team Description 10/09/2021 Orders Only Staff, Other Clinical <No sc ans attached> 09/18/2021 Orders Only Scanner <No scans attac hed> from Last 3 Months Immunizations Name Administration Dates Next Due AMB Influenza, IIV4 PF (=>6 mos 11/29/2018 Flulaval,Fluzone Fluarix)(Flu Clinic Only) Hepatitis A (Adult) 08/16/2010, 01/30/2009 Hepatitis B (Adult) 01/18/1993, 07/04/1992, 05/31/1992 Human Papilloma Virus Vaccine 09/04/2008, 06/02/2008, 2008 Influenza Virus, Unspecified 10/12/2017 Influenza, IIV4 11/07/2020, 11/07/2019, 11/20/2016, 01/23/2015 Td (Age >=7 Years) 08/02/1999 Tdap 09/06/2019, 07/11/2015, 02/09/2009 Family History Medical History Relation Name Comments Celiac disease Child Unknown Mother Relation Name Status Comments Child Mother Social History Tobacco Use Types Packs/Day Years Used Date Never Smoker Smokeless Tobacco: Never Used Tobacco Cessation: Counseling Given: Yes Alcohol Use Standard Drinks/Week Comments Yes 0 (1 standard drink = 0.6 oz pure alcoho l) rare Alcohol Habits Answer Date Recorded How often do you have a drink containing alcohol? 2-4 times a month 11/24/2018 How many drinks containing alcohol do you have on a 1 or 2 11/24/2018 typical day when you are drinking? How often do you have six or more drinks on one Never 11/24/2018 occasion? Comment: rare 09/03/2020 Sex Assigned at Date Recorded Not on file Obstetrics History Para Term AB IAB SAB Ectopic Multiple Living Live Births 3 2 1 1 1 0 1 0 0 2 2 Date Outcome GA Total Labor/2nd/3rd Weight Sex Delivery Anes PTL Heidi A 1 A5 Name Clin Labor 09/15 Term 38w F Selam July 0d ng Complications: Breech Comments: presented in labor at 38 wks and found to have breech presentation 12/22/2017 SAB 10/21/2019 36w4d M Living Last Filed Vital Signs Vital Sign Reading Time Taken Comments Blood Pressure 112/77 02/26/2021 6:37 PM ASSURANCE ASSISTANT Pulse 79 02/26/2021 6:37 PM ASSURANCE ASSISTANT Temperature 36.7 ??C (98 ??F) 02/26/2021 6:37 PM ASSURANCE ASSISTANT Respiratory Rate 16 02/26/2021 6:37 PM ASSURANCE ASSISTANT Oxygen Saturation 97% 02/26/2021 6:37 PM ASSURANCE ASSISTANT Inhaled Oxygen Concentration - - Weight 77.1 kg (170 lb) 02/26/2021 6:37 PM ASSURANCE ASSISTANT Height 175.3 cm (5' 9) 02/26/2021 6:37 PM ASSURANCE ASSISTANT Body Mass Index 25.1 02/26/2021 6:37 PM ASSURANCE ASSISTANT Plan of Treatment Health Maintenance Due Date Last Done Comments COVID-19 vaccine series (3 - 11/07/2020 06/07/2020, 021 Booster for Moderna series) Depression screening for age 12+ 09/03/2021 09/03/2020, , 12/31/2016, Additional history exists Influenza for age 9-49 10/24/2021 11/07/2020, 11/07/2019, 11/29/2018, Additional history exists BMI (ht and wt on same day) for 02/26/2022 02/26/2021, 08/23, age 18+ 01/23/2020, Additional history exists Pap test for age 21-65 03/28/2022 03/28/2019, 03/28/2019, 02/09/2018, Additional history exists Tetanus booster 09/05/2029 09/06/2019, 07/11/2015, 02/09/2009, Additional history exists Hepatitis C screening for age Completed 06/22/2018 18-79 Tdap Completed 09/06/2019, 07/11/2015, 02/09/2009 Medical Devices Implanted Type Area Implementation Project Coordinator Device Shelf Model / Identifier Expiration Date Ser ial / Lot Implnt Porp 2mm Centered Titan [id number] - [id number] [employer] Of 05/22/2026 [id number] / Implanted: Qty: 1 on 08/14/2017 by Collins Garza MD at [facility] / [id number] Procedures Procedure Name Priority Date/Time Associated Diagnosis Comme nts SCAN 10/09/2021 12:00 AM Results for this CORRESP-IMAGING CDT procedure ar e in the results section. SCAN-ULTRASOUND 09/18/2021 12:00 AM Resul ts for this REPORT CDT procedure are i n the results section. from Last 3 Months Results SCAN CORRESP-IMAGING (10/09/2021 12:00 AM CDT) Narrative 10/09/2021 12:00 AM CDT This result has an attachment that is no t available. Ordered by an unspecified provider. Other Clinical Staff OTHER SCAN-ULTRASOUND REPORT (09/18/2021 12:00 AM CDT) Narrative This result has an attachment that is no t available. Scanner OTHER from Last 3 Months Insurance Payer Benefit Plan / Subscriber ID Effective Dates Phone Addre ss Type Group BLUE CROSS BLUE CROSS OF [id number] 2020-Present [address] [address] [place] [address] [address] (Home) GUILLE PEREZ [id number] Advance Directives Latest Code Status on File Code Status Date Activated Date Inactivated Comments Full Code 10/21/2019 11:39 PM 10/22/2019 9:41 AM Code Status Discussion: Discussed Full Code 01/02/2017 8:27 AM 01/02/2017 6:19 PM Full Code 02/21/2014 1:56 PM 02/21/2014 6:19 PM Full Code 02/21/2014 7:52 AM 02/21/2014 1:56 PM Care Teams Fur Dry Cleaner Relationship Specialty Start Date End Date Casandra Jordan DO PCP - General Family Practice 08/07/15 [address] [place] [address]
--- OUTSIDE RECORDS SUMMARY | 2021-10-27 02:36 | XMS_ITS | Encounter Summary ---
:1985 Author Organization [place] Address [address] [place] [address] Care Team Providers Name Role Phone Unavailable Primary Care Provider Unavailable Reason for Visit [facility] Physical Therapy (Routine) - Closed Specialty Diagnoses / Procedures Referred By Contact Refer red To Contact Ziggy Brown FOR ATHLETIC ORTHOPAEDIC FRACTURE [facility] [address] [place] [address] Fax: Referral ID Status Reason Start Date Expiration Date Visits V isits Requested Authorized HPCIGNA - KNEE Closed 07/08/2007 02/23/2008 90 88 Encounter Details Date Type Department Care Team Description 07/28/2007 [facility] Mckeon ACL (Anterior Cruciate Ligament) Tear; [facility] Other Postp rocedural Status [facility] [address] [facility] [place], [place] [address] Social History Tobacco Use Types Packs/Day Years [...] Ligament) Tear Other Postprocedural Status [facility] THERAPEUTIC Routine 07/28/2007 5:37 PM ACL (Anterior Cruci ate EXERCISES CDT Ligament) Tear Other Postprocedural Status documented in this encounter Visit Diagnoses Diagnosis ACL (anterior cruciate ligament) tear Sprain of cruciate ligament of knee Other postprocedural status(V45.89) Other postprocedural status documented in this encounter
--- OUTSIDE RECORDS SUMMARY | 2021-10-27 02:36 | XMS_ITS | Encounter Summary ---
:1985 Author Organization [place] Address [address] [facility] [place] [address] Care Team Providers Name Role Phone Melba Bell DO Unavailable [phone] Reason for Referral Diagnostic Imaging Ultrasound (Routine) - Pending Review Specialty Diagnoses / Procedures Referred By Contact Refer red To Contact Diagnoses Hx of delivery, currently , second trimester Melba Bell, Procedures [facility] Comprehensive Single DO [address] [place], [place] [address] Referral ID Status Reason Start Date Expiration Date Visits V isits Requested Authorized [id number] Pending 05/24/2021 05/24/2022 1 1 Review Reason for Visit Diagnostic Imaging Ultrasound (Routine) - Pending Review Specialty Diagnoses / Procedures Referred By Contact Refer red To Contact Diagnoses Hx of delivery, currently , second trimester Melba Bell, Procedures [facility] Comprehensive Single DO [address] [place], [place] [address] Referral ID Status Reason Start Date Expiration Date Visits V isits Requested Authorized [id number] Pending 05/24/2021 05/24/2022 1 1 Review Encounter Details Date Type Department Care Team Description 06/21/2021 [facility]x of Maternal DO Alla delivery, [facility] [address] pregna nt, [facility] 400 trimester [address] [place], [place] [address] [address] [place], [place] [phone] [address] (Work) [phone] Social History Tobacco Use Types Packs/Day Years [...] Procedure Name Priority Date/Time Associated Comments Diagnosis [facility] US COMPREHENSIVE Routine 06/21/2021 11:04 Hx of Re sults for this SINGLE AM CDT delivery, currently procedur e are in , second the results trimester section. documented in this encounter Results [facility] US Comprehensive Single (06/21/2021 11:04 AM [...] ILIANA RAMIREZ Study Date: 8:50am Pat. NO: [id number] Referring ??MD: PRINCE SHERIFF Site: [facility] Venetian Blind Mechanic: Marjan Lane RD MS : 1985 Age: [...] lb 12 ? oz EFW by ?Hadlock (OTT-[id number]-FL) Head / Face / Neck Biometry: Spray Painter Helper ? 5.9 ? mm CM ?6.1 ? [...] cava. Inferior vena cava. 3-vessel ? view. 6-yisjle-ezsojsu view. Cardiac position. Cardiac size. Cardiac rhythm. [...] Pat. Name:MARK RAMIREZILStsebastián Date:06/21 8:50am Pat. NO: [id number] MD:JUSTIN SHERIFF Site:[facility]gesSonographer:Marjan Lane RDMS :1985Age:36 INDICATION [...] 0 lb 12 oz EFW by Hadlock ([id number]) Head / Face / Neck Biometry: Spray Painter Helper 5.9 mm CM 6.1 mm Nasal bone [...] vena cava. Inferior vena cava. 3-vessel view. 1-peqlhm-gpfdwvq view. Cardiac po sition. Cardiac size. Cardiac [...] trimester documented in this encounter Care Teams Chain Pegger Relationship Specialty Start Date End Date Melba Bell DO Assigned OBGYN Provider 06/02/21 09/20/[address] [facility] [address] [place] [address] documented as of this encounter
--- OUTSIDE RECORDS SUMMARY | 2021-10-27 02:36 | XMS_ITS | Encounter Summary ---
:1985 Author Organization [place] Address [address] [facility] [place] [address] Care Team Providers Name Role Phone Unavailable Primary Care Provider Unavailable Reason for Referral Consultation (Routine: Next available opening) - Pending Review Specialty Diagnoses / Procedures Referred By Contact Refer red To Contact Diagnoses related condition Jacqueline Salazar MD [facility] [address] [place] [address] Referral ID Status Reason Start Date Expiration Date Visits V isits Requested Authorized [id number] Pending 05/03/2021 05/03/2022 1 1 Review HES DRIER REPAIRER Encounter Details Date Type Department Care Team Description 05/03/2021 Transcribe Orders [facility] Jacqueline Salazar Pr egnancy related Maternal MD Jude condition (Primary Medicine Center [facility] Dx) [place] [address] [address] [phone] Social History Tobacco Use Types Packs/Day Years [...]
--- OUTSIDE RECORDS SUMMARY | 2021-10-27 02:36 | XMS_ITS | Encounter Summary ---
:1985 Author Organization [place] Address [address] [facility] [place] [address] Care Team Providers Name Role Phone Melba Bell DO Unavailable [phone] Reason for Visit Reason Comments Ultrasound L2/TV- history of PTL/PTD an d covid in 1st trimester Encounter Details Date Type Department Care Team Description 06/21/2021 Office Visit [facility] Melba Bell Hx of Maternal DO Alla delivery, [facility] [address] pregna nt, [address] trimester (Primary [address] [place], [place] Dx) [address] [address] [place], [place] [phone] (Wo rk) [address] [phone] Social History Tobacco Use Types Packs/Day Years [...] Primary documented in this encounter Care Teams Hospital Pharmacist Relationship Specialty Start Date End Date Melba Bell DO Assigned OBGYN Provider 06/02/21 09/20/21 [address] [facility] [address] [place], [place] [phone] documented as of this encounter
--- OUTSIDE RECORDS SUMMARY | 2021-10-27 02:36 | XMS_ITS | Encounter Summary ---
:1985 Author Organization [place] Address [address] [place] [address]. [place] [address] Care Team Providers Name Role Phone Unavailable Primary Care Provider Unavailable Encounter Details Date Type Department Care Team Description 04/24/2021 Medical Correspondence [facility] Scan, MATERNAL Health Info Mgmt Non-Provider MEDICINE CE NTER [facility] PROVIDER SERVICE [address] [place] [address] REQUEST OUTPATIENT [place] [address] [facility] [phone] [facility] Social History Tobacco Use Types Packs/Day Years Used Date Never Assessed Sex Assigned at Date Recorded Not on file documented as of this encounter Plan of Treatment Not on filedocumented as of this encounter Visit Diagnoses Not on filedocumented in this encounter
--- OUTSIDE RECORDS SUMMARY | 2021-10-27 02:36 | XMS_ITS | Encounter Summary ---
:1985 Author Organization [place] Address [address] [place] [address] Care Team Providers Name Role Phone Unavailable [...]
--- OUTSIDE RECORDS SUMMARY | 2021-10-27 02:36 | XMS_ITS | Encounter Summary ---
:1985 Author Organization [place] Address [address] [place] [address] Care Team Providers Name Role Phone Unavailable Primary Care Provider Unavailable Reason for Visit Reason Comments Ultrasound 2/3+TV- hx PTL/PTD, 1st tri Covid Consult MFM- hx PTL/PTD, 1st tri Cov id Encounter Details Date Type Department Care Team Description 05/17/2021 PRE VISIT [facility] Maricruz Andrade nd (2/3+TV- hx Maternal Jonelle Raz RN PTL/PTD, 1st [facility] Covid); Cons ult ([facility] hx PTL/PTD, 1st tri [address] Covid) [place], [place] [address] Social History Tobacco Use Types Packs/Day Years Used Date Never Assessed Sex Assigned at Date Recorded Not on file documented as of this encounter Plan of Treatment Not on filedocumented as of this encounter Visit Diagnoses Not on filedocumented in this encounter
--- OUTSIDE RECORDS SUMMARY | 2021-10-27 02:36 | XMS_ITS | Encounter Summary ---
:1985 Author Organization [place] Address [address] [facility] [place] [address] Care Team Providers Name Role Phone Melba Bell DO Unavailable [phone] Encounter Details Date Type Department Care [...] on filedocumented in this encounter Care Teams Loom Tuner Relationship Specialty Start Date End Date Melba Bell DO Assigned OBGYN Provider 06/02/21 09/20/[address] [place], [place] [address] documented as of this encounter
--- OUTSIDE RECORDS SUMMARY | 2021-10-27 02:36 | XMS_ITS | Clinical Summary ---
:1985 Author Organization [place] Address [facility] [address] Care Team Providers Name Role Phone Unavailable [...] but HPV effect 08/16/2010 Pap: HPV+ 09/24/2010 [place]: Negative 09/30/2011 [place]: No dysplasia but HPV effe ct 08/20/2012 [...] (OB) 07/16/2021 REPEAT ANTIBODY SCREEN (OB) 08/13/2021 GROUP B STREP SCREENING 10/08/2021 INFLUENZA VACCINE (#1) 2021 11/07/2020, 11/07/2019, 11/29/2018, [...] Group Dates BCBS BCBS OUT OF STATE [id number] 2020-Pre [phone] Indemnity sent [phone] [place] [address] [employer] [id number] 2001-Pre [phone] [employer] sent [phone] [place] [address] COMMERCIAL GENERIC [id number] 2007-Pr [phone] Ind[place]ity [id number] Galina Dangelo Personal/Famil Self 1985 [address] (Home) [place] [address]
--- OUTSIDE RECORDS SUMMARY | 2021-10-27 02:36 | XMS_ITS | Encounter Summary ---
:1985 Author Organization [place] Address [address] [place] [address] Care Team Providers Name Role Phone Unavailable Primary Care Provider Unavailable Reason for Visit [facility] (Routine) - Closed Specialty Diagnoses / Procedures Referred By Contact Refer red To Contact Ziggy Brown FOR ATHLETIC ORTHOPAEDIC FRACTURE [facility] [address] [place] [address] Fax: Referral ID Status Reason Start Date Expiration Date Visits V isits Requested Authorized HPCIGNA - KNEE Closed 07/08/2007 02/23/2008 90 88 Encounter Details Date Type Department Care Team Description 08/11/2007 [facility] Mckeon ACL (Anterior Cruciate Ligament) Tear; [facility] Other Postp rocedural Status [facility] [address] [facility]. [address] [place], [place] [address] Social History Tobacco Use Types Packs/Day Years [...] ACTIVITIES CDT Ligament) Tear Other Postprocedural Status [facility] NEUROMUSCULAR Routine 08/11/2007 1:02 PM ACL (Anterior Cru ciate RE-EDUCATION CDT Ligament) Tear Other Postprocedural Status [facility] THERAPEUTIC Routine 08/11/2007 1:02 PM ACL (Anterior Cruci ate EXERCISES CDT Ligament) Tear Other Postprocedural Status documented in this encounter Visit Diagnoses Diagnosis ACL (anterior cruciate ligament) tear Sprain of cruciate ligament of knee Other postprocedural status(V45.89) Other postprocedural status documented in this encounter
--- OUTSIDE RECORDS SUMMARY | 2021-10-27 02:36 | XMS_ITS | Encounter Summary ---
:1985 Author Organization [place] Address [address] [facility] 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 5.4 ? mm CM ?2.9 ? [...] cava. Inferior vena cava. 3-vessel ? view. 9-dnuwek-herygls view. Cardiac position. Cardiac size. Cardiac rhythm. [...] Ovary ?Visualized Left Ovary ?Visualized CONSULTATION Type: [facility] CONSULTATION Dear Dr. 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 The current conclusion of [facility] is that it is reasonable to offer 17-OHP to women with a profile mor e patient access representative of the very high risk patient, but that all women at risk of recurrent should have a discussion of the risks/benefits and undergo a shared deci alex-making process. After the publication of the [place] ( PROLONG) study an FDA Advisory Committee recommended withdrawing [place] (17 - OHP) off the market. The FDA decision is still pending. [facility] did not change their position. ACOG supports [...] invasive route and will likely go to [place] on Thursday to have cell free DNA drawn. She can contact our office early next week if Dr. Salazar' office ca nnot get her in for it. We discussed what the results might mean if low risk/high risk, but can provide further information if needed. Recommendations: - Cell free DNA screening to be performe d through [place]. - Baseline transvaginal cervical length at 16 weeks' gestation with measurements every 2 weeks through 23 weeks. - [place] to perform the TVUS for CL at 18 and 22 weeks. - [facility] will perform a comprehensive US at [...] RECOMMENDATION We discussed the findings [facility] rast[facility] health with the patient. See consultation above for [...] Trim Name:Ling RAMIREZ Date:05/24 8:04am Pat. NO: [id number] MD:JUSTIN SALAZAR [facility]rapher:Fernando Matthews RDMS :1985Age:36 INDICATION Survey METHOD Transabdominal [...] 0 lb 5 oz EFW by Hadlock ([id number]-PE-LQ-FL) Head / Face / Neck Biometry: Database Designer 5.4 mm CM 2.9 mm Nasal bone [...] vena cava. Inferior vena cava. 3-vessel view. 8-rehjlp-wlpruod view. Cardiac po sition. Cardiac size. Cardiac [...] Ovary Visualized Left Ovary Visualized CONSULTATION Type: [facility] CONSULTATION Dear Dr. 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 Kimebr ined placenta, requiring manual extraction, no hemorrhage [...] 48% in [place]). The current conclusion of [facility] is that it is reasonable to offer 17-OHP to women with a profile mor e patient access representative of the very high risk patient, but that all women at risk of recurrent should have a discussion of the risks/benefits and undergo a shared deci alex-making process. After the publication of the [place] ( PROLONG) study an FDA Advisory Committee recommended withdrawing [place] (17 - OHP) off the market. The FDA decision is still pending. [facility] did not change their position. ACOG supports [...] invasive route and will likely go to [place] on Thursday to have cell free DNA drawn. She can contact our office early next week if Dr. Salazar' office ca sol get her in for it. We discussed what the results might mean if low risk/high risk, but can provide further information if needed. Recommendations: - Cell free DNA screening to be performe d through [place]. - Baseline transvaginal cervical length at 16 weeks' gestation with measurements every 2 weeks through 23 weeks. - [place] to perform the TVUS for CL at 18 and 22 weeks. - [facility] will perform a comprehensive US at [...] A repeat ultrasound has been scheduled [facility] in [facility] for a comprehensive [...] length is r eassuring. Terry Benítez MD [facility] US ORDERABLES documented in this encounter Visit Diagnoses Diagnosis Hx of delivery, currently pregna nt, second trimester - Primary Hx of delivery, currently pregna nt, second trimester documented in this encounter
--- OUTSIDE RECORDS SUMMARY | 2021-10-27 02:36 | XMS_ITS | Encounter Summary ---
:1985 Author Organization [place] Address [address] [place] [address] Care Team Providers Name Role Phone Unavailable Primary Care Provider Unavailable Reason for Visit [facility] (Routine) - Closed Specialty Diagnoses / Procedures Referred By Contact Refer red To Contact Ziggy Brown FOR ATHLETIC ORTHOPAEDIC FRACTURE [facility] [address] [place] [phone] Fax: Referral ID Status Reason Start Date Expiration Date Visits V isits Requested Authorized HPCIGNA - KNEE Closed 07/08/2007 02/23/2008 90 88 Encounter Details Date Type Department Care Team Description 08/04/2007 [facility] Patricia Mckeon ACL (Anterior Cruciate Ligament) Tear; [facility] Other Postp rocedural Status [facility] [address] [facility]. [address] [place], [place] [address] Social History Tobacco Use Types Packs/Day Years [...] Procedure Name Priority Date/Time Associated Diagnosis Comme [facility] THERAPEUTIC Routine 08/04/2007 5:12 PM ACL (Anterior Cruci ate ACTIVITIES CDT Ligament) Tear Other Postprocedural Status [facility] NEUROMUSCULAR Routine 08/04/2007 5:12 PM ACL (Anterior Cru ciate RE-EDUCATION CDT Ligament) Tear Other Postprocedural Status [facility] THERAPEUTIC Routine 08/04/2007 5:12 PM ACL (Anterior Cruci ate EXERCISES CDT Ligament) Tear Other Postprocedural Status documented in this encounter Visit Diagnoses Diagnosis ACL (anterior cruciate ligament) tear Sprain of cruciate ligament of knee Other postprocedural status(V45.89) Other postprocedural status documented in this encounter
--- OUTSIDE RECORDS SUMMARY | 2021-10-27 02:36 | XMS_ITS | Encounter Summary ---
:1985 Author Organization [place] Address [address] [place] [address] Care Team Providers Name Role Phone Unavailable Primary Care Provider Unavailable Reason for Visit [facility] (Routine) - Closed Specialty Diagnoses / Procedures Referred By Contact Refer red To Contact Ziggy Brown FOR ATHLETIC ORTHOPAEDIC FRACTURE [facility] MED [address] [phone] Fax: Referral ID Status Reason Start Date Expiration Date Visits V isits Requested Authorized HPCIGNA - KNEE Closed 07/08/2007 02/23/2008 90 88 Encounter Details Date Type Department Care Team Description 08/18/2007 [facility] Meg Kent i, PT ACL (Anterior Cruciate Ligament) Tear; [facility] [address] [address] Other Po stprocedural Status [facility] [address] [place] [address] [address] [address] [place], [place] [address] (Work) [phone] Social History Tobacco Use Types Packs/Day Years [...] Name Priority Date/Time Associated Diagnosis Comme nts [facility] NEUROMUSCULAR Routine 08/18/2007 3:54 PM ACL (Anterior Cru ciate RE-EDUCATION CDT Ligament) Tear Other Postprocedural Status [facility] THERAPEUTIC Routine 08/18/2007 3:54 PM ACL (Anterior Cruci ate EXERCISES CDT Ligament) Tear Other Postprocedural Status documented in this encounter Visit Diagnoses Diagnosis ACL (anterior cruciate ligament) tear Sprain of cruciate ligament of knee Other postprocedural status(V45.89) Other postprocedural status documented in this encounter
--- OUTSIDE RECORDS SUMMARY | 2021-10-27 02:36 | XMS_ITS | Encounter Summary ---
:1985 Author Organization [place] Address [address] [place] [address] Care Team Providers Name Role Phone Unavailable Primary Care Provider Unavailable Reason for Referral Consultation (Routine) - Pending Review Specialty Diagnoses / Procedures Referred By Contact Refer red To Contact Diagnoses related condition, antepartum Jacqueline Salazar MD [facility] [address] [place] [address] Referral ID Status Reason Start Date Expiration Date Visits V isits Requested Authorized [id number] Pending 05/03/2021 05/03/2022 1 1 Review RN ARCHITECT Encounter Details Date Type Department Care Team Description 05/03/2021 Transcribe Orders [facility] Jacqueline Salazar Pr egnancy related Maternal MD Jude condition, Medicine Center [facility] antepartum ( Primary [place] [facility] Dx) [address] [facility] [address] [place] [phone] Social History Tobacco Use Types Packs/Day Years [...]
--- OUTSIDE RECORDS SUMMARY | 2021-10-27 02:36 | XMS_ITS | Encounter Summary ---
:1985 Author Organization [place] Address [address] [facility] [place] [address] Care Team Providers Name Role Phone Unavailable Primary Care Provider Unavailable Reason for Referral Diagnostic Imaging Ultrasound (Routine) - Pending Review Specialty Diagnoses / Procedures Referred By Contact Refer red To Contact Diagnoses Hx of delivery, currently , second trimester Melba Bell, Procedures [facility] US Comprehensive [facility] DO [address] [facility] [address] [place], [place] [address] Referral ID Status Reason Start Date Expiration Date Visits V isits Requested Authorized [id number] Pending 05/24/2021 05/24/2022 1 1 Review Reason for Visit Reason Comments Ultrasound 2/3 complete with TV: hx PTD Consult MF consult Consultation (Routine: Next available opening) - Pending Review Specialty Diagnoses / Procedures Referred By Contact Refer red To Contact Diagnoses related condition Jacqueline Salazar MD [facility] [address] [place] [address] Referral ID Status Reason Start Date Expiration Date Visits V isits Requested Authorized [id number] Pending 05/03/2021 05/03/2022 1 1 Review Encounter Details Date Type Department Care Team Description 05/24/2021 [facility] [address], [place] [address] Hx of delivery, currently pregna nt, second trimester (Primary Dx); Maternal Melba Bell DO [address] [place], [place] [address] related condition in second tr [facility] [address] [place], [place] [address] Social History Tobacco Use Types Packs/Day Years [...] 05/24/2021 8:45 AM CDT Iliana presents to [facility] for 2/3 complete with TV [...] on filedocumented as of this encounter Results [facility] US Comprehensive Single (06/21/2021 11:04 AM [...] ILIANA RAMIREZ Study Date: 8:50am Pat. NO: [id number] Referring ??MD: PRINCE SALAZAR Site: [facility] Life Scientist: Marjan Lane RD MS : 1985 Age: [...] lb 12 ? 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 5.9 ? mm CM ?6.1 ? [...] cava. Inferior vena cava. 3-vessel ? view. 7-hyqeif-tcfrvxf view. Cardiac position. Cardiac size. Cardiac rhythm. [...] Comprehensive Name:Ling RAMIREZ Date:06/21 8:50am Pat. NO: [id number] MD:JACQUELINE SALAZAR [place]:Marjan Lane RDMS :1985Age:36 INDICATION History of delivery. [...] 0 lb 12 oz EFW by Hadlock ([id number]-VZ-FL) Head / Face / Neck Biometry: Out Of Town Collection Clerk 5.9 mm CM 6.1 mm Nasal bone [...] vena cava. Inferior vena cava. 3-vessel view. 9-nvifuz-gqizslj view. Cardiac po sition. Cardiac size. Cardiac [...] is r eassuring. Melba Bell DO IMG [facility] US ORDERABLES documented in this encounter Visit Diagnoses Diagnosis Hx of delivery, currently pregna nt, second trimester - Primary related condition in second tr imester Unspecified complication of , a ntepartum Hx of delivery, currently pregna nt, second trimester documented in this encounter
--- OUTSIDE RECORDS SUMMARY | 2021-10-27 02:36 | XMS_ITS | Encounter Summary ---
:1985 Author Organization [facility] Address [address] [place] [address] Care Team Providers Name Role Phone Unavailable Primary Care Provider Unavailable Reason for Visit [facility] (Routine) - Closed Specialty Diagnoses / Procedures Referred By Contact Refer red To Contact Ziggy Brown FOR ATHLETIC ORTHOPAEDIC FRACTURE [facility] [address] [place] [phone] Fax: Referral ID Status Reason Start Date Expiration Date Visits V isits Requested Authorized HPCIGNA - KNEE Closed 07/08/2007 02/23/[phone] Encounter Details Date Type Department Care Team Description 07/08/2007 [facility] Visit [facility], ACL ( Anterior Cruciate Ligament) Tear; Medicine - Shaquille Leon, PT Other Postprocedural Status [facility] [address] [place], [place] [address] [address] [place], [place] [address] [phone] Social History Tobacco Use Types Packs/Day Years [...] Name Priority Date/Time Associated Diagnosis Comme nts [facility] Routine 07/08/2007 10:57 AM ACL (Anterior Cruc iate ACTIVITIES CDT Ligament) Tear Other Postprocedural Status [facility] Routine 07/08/2007 10:41 AM ACL (Anterior Cruc iate EXERCISES CDT Ligament) Tear Other Postprocedural Status documented in this encounter Visit Diagnoses Diagnosis ACL (anterior cruciate ligament) tear Sprain of cruciate ligament of knee Other postprocedural status(V45.89) Other postprocedural status documented in this encounter
[2021-10-27] MEDS: LACTATED RINGERS 1000 ML 1,000 ML 999 ML IV (03:22)
[2021-10-27 03:24] LABS: Basophils Absolute Auto 0.02 K/uL (0.00-0.30); Basophils Percent Auto 0.2 % (0.0-3.0); Eosinophils Absolute Auto 0.07 K/uL (0.00-0.50); Eosinophils Percent Auto 0.8 % (0.0-7.0); Hematocrit 37.3 % (33.0-51.0); Hemoglobin* 12.7 gm/dL (12.0-16.0); Immature Granulocytes Abs Auto 0.03 K/uL (0.00-0.30); Mean Corpuscular HGB Conc 34 gm/dL (32-36); Mean Corpuscular Hemoglobin 30 pg (26-34); Mean Corpuscular Volume 87 fL (80-100); Monocytes Percent Auto 7.9 % (0.0-11.0); Neutrophils Absolute Auto 6.17 K/uL (1.7-7.0); Neutrophils Percent Auto 71.8 % (42.0-72.0); Platelet Count* 172 K/uL (140-440); RDW Coefficient of Variation % 12.8 % (11.5-15.5); White Blood Count* 8.61 K/uL (4.50-11.00)
[2021-10-27 03:28] LABS: Slide Review Reflex No
[2021-10-27] MEDS: ROPIVACAINE 0.2% 100 ml 100 ML 12 MG EPIDURAL (03:44)
[2021-10-27] MEDS: LIDOCAINE 2% (PF) 5 ML VIAL EPIDURAL (03:45)
--- NOTE | 2021-10-27 04:00 | P.OBHP_ITS ---
OB - H&P: HPI Labor/Induction History of Present Illness Time Seen by Provider: 04:00 Date Seen: 10/27/21 Chief Complaint: The patient is a 36 year old 5 para 1122 at 38 5/7 weeks gestation by LMP, ZAHIRA 11/05/2021, who presents with regular contractions the increasing intensity. Onset of regular contractions was at 1:00 a.m.. She has a history a primary low transverse section for breech at term with her 1st , and a successful late vaginal after section. She desires trial of labor after section. This was complicated by breech presentation at 36 weeks gestation, and she underwent a successful external cephalic version at 37 weeks gestation. OB PROBLEM LIST: OB history: -h/o PLTCS for breech 2015 with successful in 09/2019 at 36 4/7 weeks -h/o molar , treated with D+C 2018 -h/o missed AB in 2017 -h/o retained placenta 09/2019 recommend level 2 ultrasound to evaluate placentation: Posterior placenta, no previa, greater than 2 cm from internal os. -desires 1. Covid infection in (at time of +UPT) recommended/offered level 2 u/s, growth at 32 & 36 weeks, testing beginning at 36 weeks, and IOL at 39 weeks 2. h/o delivery at 36 4/7 weeks Perinatology consult: Recommended TVUS q2wks from 16-23 weeks for cervical length. Level 2 US + cervical length @20 weeks with MFM. Declines 17 OHP. 06/03/21: CL 3.9 cm 06/21/21: CL 4.0 cm 07/04/21: CL 2.7cm 07/12/21: CL 3.9 cm 3. MaterniT-21 normal. 4. Successful external cephalic version at 37 weeks gestation. Chief complaint: Maternity : 5 Para: 2 Date of last menstrual period: 01/29/21 Estimated date of delivery: 11/05/21 Gestational age based on last menstrual period: 38 History of Present Dating criteria: based on LMP care: good care Ultrasounds: normal 1st trimester US and normal mid trimester US Medical complications: none Labs Blood type: O (+) positive Rubella: immune RPR/VDLR: nonreactive GBS status: negative HBsAG: negative Review of Systems Status of ROS: Reports: 10 or more systems reviewed and unremarkable except as noted in History and below Meds Home Medications and Allergies Home Medications Medication Instructions Recorded Confirmed Type docosahexaenoic acid 200 mg 200 mg PO DAILY 09/02/21 10/27/21 History capsule ( DHA) Allergies Allergy/AdvReac Type Severity Reaction Status Date / Time No Known Allergies Allergy Verified 10/27/21 02:43 OB - H&P: Exam Physical Exam: Vital signs: Pulse BP Pulse Ox 69 119/74 98 10/27/21 03:27 10/27/21 03:27 10/27/21 03:56 Narrative: VITAL SIGNS: Noted above. GENERAL APPEARANCE: Alert cooperative white female in no acute distress. MOOD AND AFFECT: Normal. CV: Heart regular rate and rhythm. PULM: Lungs clear to auscultation bilaterally. ABDOMEN: Soft, gravid, nontender. Fundal height is consistent with term gestation. The fetus is in a vertex presentation by Bruno's. heart tones are present with the Doptones in the 140s. : Normal female external genitalia. Cervix is 5 cm dilated, 90% effaced, with vertex at a -2 station. EXTREMITIES: Without significant edema, nontender bilaterally. NEURO: Intact. OB - Results Labs Labs: Short CBC 10/27/21 Range/Units 03:14 WBC 8.61 (4.50-11.00) K/uL Hgb 12.7 (12.0-16.0) gm/dL Hct 37.3 (33.0-51.0) % Plt Count 172 (140-440) K/uL OB - Problem Based A/P Additional Plan (1) Spontaneous onset of labor: Status: Acute (2) Patient desires vaginal after section (): Status: Acute Plan 1. A limited OB ultrasound was performed at the bedside using a handheld ultrasound device which confirmed vertex presentation. 2. Written consent was obtained for trial of labor after section vaginal after section. The patient had previously signed a consent form in the [facility] on 10/23/2021, but the form could not be located within the electronic medical record or the [facility] office. 3. scalp electrode placed due to difficulty monitoring heart rate externally. 4. Epidural analgesia obtained. Delivery/Labor/Induction Plan Plan: expectant management
--- NOTE | 2021-10-27 04:06 | P.ANBPRC_ITS ---
[facility] Medical History (Updated 10/23/21 @ 11:41 by Delores Willingham MD) ASCUS with positive high risk HPV cervical (03/29/15) History of spontaneous (12/22/17) Molar (08/10/18) Retained placenta or membranes without hemorrhage (05/17/21) Surgical History (Updated 10/23/21 @ 11:41 by Delores Willingham MD) History of section (09/16/15) History of ear surgery History of elbow surgery History of repair of anterior cruciate ligament of right knee (~2007) History of wisdom tooth extraction (~2006) S/P tonsillectomy and adenoidectomy (~1997) Status post delivery (09/16/15) Status post dilation and curettage (2018) Family History (Updated 10/23/21 @ 11:42 by Delores Willingham MD) Mother High blood cholesterol Other Diabetes Social History (Updated 10/23/21 @ 11:43 by Delores Willingham MD) Narrative: Lives in [place] with and 2 kids. Works for [employer]. No smoking, alcohol or drug use. Smoking Status: Never smoker How often do you have a drink containing alcohol: never AUDIT-C Alcohol total score: 0 Non-prescribed substance use: denies use Are you now , , , , never or living with a partner: Social isolation score (0-1 are the most socially isolated patients): 1 Meds Home Medications and Allergies Home Medications Medication Instructions Recorded Confirmed Type docosahexaenoic acid 200 mg 200 mg PO DAILY 09/02/21 10/27/21 History capsule ( DHA) Allergies Allergy/AdvReac Type Severity Reaction Status Date / Time No Known Allergies Allergy Verified 10/27/21 02:43 Results Labs Labs: Laboratory Results - last 24 hr 10/27/21 03:14 WBC 8.61 RBC 4.30 Hgb 12.7 Hct 37.3 MCV 87 MCH 30 MCHC 34 RDW Coeff of Luis Carlos 12.8 Plt Count 172 Neut % (Auto) 71.8 Lymph % (Auto) 19.0 L [place] % (Auto) 7.9 Eos % (Auto) 0.8 Baso % (Auto) 0.2 Neut # (Auto) 6.17 Lymph # (Auto) 1.60 [place] # (Auto) 0.70 Eos # (Auto) 0.07 Baso # (Auto) 0.02 Abs Immat Gran (auto) 0.03 Vital Signs Vital Signs: Last Vital Signs Pulse 111 H 10/27/21 04:06 BP 95/50 L 10/27/21 04:06 Pulse Ox 98 10/27/21 03:56 Weight: 96.162 kg Height: 175.26 cm Anesthesia Procedures Epidural Insertion Patient Location: OB Start Time: :20 Stop Time: 04:07 Start Date: 10/27/21 Stop Date: 10/27/21 Reason for Block: procedure for pain Patient Position: sitting Performed By: Chris Ward Preanesthetic Checklist: IV checked, risks and benefits discussed, surgical consent, monitors and equipment checked, pre-op evaluation, timeout performed and anesthesia consent Prep: chlorhexidine gluconate Monitoring: blood pressure monitoring, continuous pulse oximetry and heart rate Approach: midline Vertebral Space: lumbar (1-5) Epidural Technique: SUMIT air Needle Type: Tuohy needle Injection Technique: continuous catheter Needle gauge: 17 Needle Length (cm): 10 cm Needle Insertion Depth (cm): 7 Catheter Gauge: 19 Catheter Type: multi-orifice Catheter at skin depth (cm): 13 Test Dose Result: negative and lidocaine 1.5% with epinephrine 1 to 200,000
[2021-10-27 04:30] LABS: SARS PCR* Negative SARS-CoV-2 (Negative)
[2021-10-27] MEDS: LACTATED RINGERS 1000 ML 1,000 ML 125 ML IV (06:07)
--- NOTE | 2021-10-27 08:45 | PM.OBPNL ---
Pain Control Time Seen by Provider: 08:30 Date Seen: 10/27/21 Pain control: epidural Comments: Feeling more pressure with contractions. Contractions Monitor mode: External Contraction frequency: 3 Contraction pattern: Regular Contraction intensity: Strong/Firm Pelvic Exam Dilation (cm): 10 Effacement (%): 100 Comments: per nursing staff Fetus (Single) Amniotic Membrane Status: AROM (FSE) status: Category ll Comments: variable decelerations with contractions, mild Assessment and Plan Assessment: active labor Plan: continue present management Comments: Active pushing.
[2021-10-27] MEDS: LIDOCAINE 1% MDV 20 ML INJECTION (10:50)
[2021-10-27] MEDS: OXYTOCIN 30 unit/500 ML in NS 30 UNIT/500 ML BAG 300 UNIT IVPB (11:03)
--- NOTE | 2021-10-27 11:07 | PM.OBPRCVD ---
Procedure Delivery date: 10/27/21 Procedure Done: Global Events: Previous and Covid Infection in Intrapartal Events: None Delivery augmentation: rupture of membranes Delivery monitor: external uterine and internal FHT Route of delivery: Laceration description: Periurethral - 2nd Degree Delivery repair: Chromic Estimated blood loss (mL): 250 Anesthesia type: Epidural Disposition: floor Complications: None. Narrative: The patient is a 36 year-old G 5 P1122 admitted on 10/27/2021 at 38 5/7 Weeks gestation for spontaneous onset of labor.? Cervical exam on admission was 5 cm/90 % effaced/-2 station with membranes intact in vertex presentation.? Contractions were every 5 minutes.? heart rate demonstrated baseline 120 bpm with moderate variability, + accelerations, - decelerations; a category 1 tracing.? The patient had a history of a previous delivery, and a previous vaginal delivery complicated by retained placenta and hemorrhage. She desired a trial of labor after section. Consent form was signed. The OR team and I were notified of the admission and came into the hospital for the duration of the active labor. Labor Analgesia:? Epidural ? Pitocin:? No ? Labor onset:? 0100 ? AROM was performed at 0432 and a scalp electrode placed to better monitor the heart rate. Complete:? 0816 ? Pushing:? 0823 ? heart tones during second stage were initially 120s baseline, with moderate variability and mild variable decelerations with contractions. At 0954, there was a 6 minute bradycardia to the 80s. The patient was repositioned and a hands and knees, and heart rate michael to 150 beats per minute with some decrease in variability. For the next 45 minutes, the patient continued actively pushing in the hands knees position. As the fetus was , the patient was repositioned in the left lateral recumbent position. ? At 1045 a viable male delivered in vertex OA presentation over second-degree midline perineal laceration via spontaneous vaginal delivery.? There was a nuchal cord x1 which could not be reduced over the head. The cord was then clamped and cut on the perineum, and then the shoulders and remainder of the infant delivered. The nose and mouth were suction with the bulb suction. The patient was taken to the warmer for evaluation. weight was 8 lb 3 oz.? Apgars 4 and 9 and 1 and 5 minutes respectively. Shoulder dystocia: No.? Nuchal cord: Yes x1. ? Placenta delivered spontaneously and complete at 1048 with a 3 vessel cord. ? Mother and infant were stable after delivery. ? Lacerations:? Second-degree midline perineal, repaired with 3-0 chromic. ? Blood loss: 250 mL. Blood loss measurement type: EBL ? Sponge and needles counts are correct. [place] Infant Gender: Male presentation: vertex Placental Delivery Description: Spontaneous Cord Description: 3 Vessels, Nuchal Cord, Tight and Clamped/Cut (On the perineum) OB Vag Delivery Procedures Additional Procedures Laceration Repair: Yes
[2021-10-27] MEDS: IBUPROFEN 600 MG TABLET PO ×2 (13:59→20:11)
[2021-10-27] MEDS: ACETAMINOPHEN 500 MG TABLET 1000 MG PO ×2 (17:08→23:01)
[2021-10-28] MEDS: IBUPROFEN 600 MG TABLET PO ×2 (03:02→08:53)
[2021-10-28 04:06] VITALS: BP 114/78; PULSE 56; RESP 14; TEMP 36.5; O2SAT 97
[2021-10-28 07:09] LABS: Hemoglobin* 11.2 gm/dL (12.0-16.0)
[2021-10-28] MEDS: ACETAMINOPHEN 500 MG TABLET 1000 MG PO (07:18)
[2021-10-28 08:30] VITALS: BP 122/78; PULSE 73; RESP 14; TEMP 36.6; O2SAT 98
[2021-10-28] MEDS: DOCUSATE SODIUM 100 MG CAPSULE PO (08:53)
--- NOTE | 2021-10-28 10:25 | PM.OBPNVD1 ---
OB - PN:Subj Subjective Date Seen: 10/28/21 Patient comments OB post-: no complaints and tolerating diet status: feeding status: exclusively Narrative: Doing well. Minimal perineal pain. Normal lochia. going well. Would like to be discharged today as her daughter starts kindergarten tomorrow. OB - PN: Obj Exam Physical Exam: Vital signs: Temp Pulse Resp BP Pulse Ox O2 Del Method 97.8 F 73 14 122/78 98 10/28/21 08:30 10/28/21 08:30 10/28/21 08:30 10/28/21 08:30 10/28/21 08:30 10/28/21 08:30 Constitutional: Constitutional: no acute distress and cooperative Routine Respiratory Exam: Respiratory: Present CTA bilaterally Routine Cardiovascular Exam: Cardiovascular: Present RRR; Absent murmur Routine Abdominal Exam: Abdominal: Present soft; Absent tenderness Fundus: Present firm (U/2) Routine Exam: Patient deferred: perineal exam (repair intact) Routine Extremities Exam: Extremities: Absent calf tenderness, joint swelling or tenderness Routine Neurological Exam: Neurological: Present alert and oriented X3 Routine Psychiatric Exam: Psychiatric: Present normal affect OB - PN: Obj Data Labs Labs: Laboratory Results - last 24 hr 10/28/21 06:50 Hgb 11.2 L OB - PN: A/P Vaginal Delivery Assessment and Plan (1) , delivered: Status: Acute Plan Plan: discharge home
== END 2021-10-28 12:50 | disposition home or self-care (01) | DRG 560 ==
LOC: OB OUT 03:02 → OB 03:02
PROVIDERS: Admitting Provider Obstetrics & Gynecology; PCP Family Medicine; Visit Provider Advanced Practice Midwife
DX: O34.211 Maternal care for low transverse scar from previous cesarean delivery (principal); O76 Abnormality in fetal heart rate and rhythm complicating labor and delivery; O70.1 Second degree perineal laceration during delivery; Z86.16 Personal history of COVID-19; Z3A.38 38 weeks gestation of pregnancy; Z37.0 Single live birth
CPT/HCPCS: 1967; 36415; 85018; 85025; 86850; 86900; 86901; 87635; A9270; J2795; J7120